=== PATIENT | male | born 1940 | race Caucasian/White ===

== ENCOUNTER 2020-06-29 16:33 | Inpatient (IN) | payer MEDICARE, BC ==
[~2020-06-29] VITALS: Ht 182.9 cm; Wt 127.4 kg
--- NOTE | 2020-06-29 17:05 | EKG ---
[address] [address] Test Date: 2020-06-29 Test Time: 16:54:20 Pat Name: ERICH MANZO Department: Room: Gender: M [employer] Manager: MARGAUX : 1940 Requested By: BLACK VILLARREAL Order Number: [id number] Reading MD: Measurements Intervals [place] Rate: 77 P: 0 MN: 178 QRS: -23 QRSD: 144 T: 118 QT: 412 QTc: 468 Interpretive Statements SINUS RHYTHM LEFTWARD AXIS LOW LIMB LEAD VOLTAGE NON SPECIFIC INTRAVENTRICULAR BLOCK QRS(T) CONTOUR ABNORMALITY CONSISTENT WITH ANTERIOR INFARCT PROBABLY OLD CONSISTENT WITH INFERIOR INFARCT AGE UNDETERMINED ABNORMAL ECG RI6.02 No previous ECG available for comparison
[2020-06-29] MEDS ORDERED: IPRATRPIUM/ALBUTEROL 0.5/2.5MG 3 ML NEBU. NEB ONE (17:15)
--- NOTE | 2020-06-29 17:23 | PHYS DOC ---
General Adult EDM: Chief Complaint: SHORTNESS OF BREATH HPI: HPI: 80-year-old male coming in for shortness of breath. Has had productive cough for the past 3 days. Also has noted wheezing. She does shortness of breath is getting worse. Has a history of asthma and has had inhaler has not helped. History of a prosthetic aortic valve, hypertension, diabetes. No vomiting or diarrhea. Denies any fevers, headaches, body aches (BLACK VILLARREAL MD) Review of Systems: Review of Systems: Constitutional: Denies fever or chills Eyes: Denies change in visual acuity HENT: Denies nasal congestion or sore throat Respiratory: Cough and shortness of breath, wheezing Cardiovascular: Denies chest pain or edema GI: Denies abdominal pain, nausea, vomiting, bloody stools or diarrhea : Denies dysuria Musculoskeletal: Denies back pain or joint pain Integument: Denies rash Neurologic: Denies headache, focal weakness or sensory changes Endocrine: Denies polyuria or polydipsia Lymphatic: Denies swollen glands Psychiatric: Denies depression or anxiety (BLACK VILLARREAL MD) Heart Score: Risk Factors: Risk Factors: DM, Current or recent (<one month) smoker, HTN, HLP, family history of CAD, obesity. Risk Scores: Score 0 - 3: 2.5% MACE over next 6 weeks - Discharge Home Score 4 - 6: 20.3% MACE over next 6 weeks - Admit for Clinical Observation Score 7 - 10: 72.7% MACE over next 6 weeks - Early Invasive Strategies (BLACK VILLARREAL MD) Current Medications: Current Meds: Current Medications Medications (Trade) Dose Ordered Sig/Mela Start Time Stop Time Status Last Admin Dose Admin Albuterol/ Ipratropium (Duoneb) 3 ml 1X ONCE 06/29/20 17:15 06/29/20 17:16 UNV (BLACK VILLARREAL MD) Allergies: Allergies: Allergies Coded Allergies Type Severity Reaction Last Updated Verified amlodipine Allergy Unknown 06/29/20 Yes atorvastatin Allergy Unknown 06/29/20 Yes (BLACK VILLARREAL MD) Physical Exam: PE: Constitutional: Well developed, well nourished, no acute distress, non-toxic appearance. [] HENT: Normocephalic, atraumatic, bilateral external ears normal, oropharynx moist, no oral exudates, nose normal. [] Eyes: PERRLA, EOMI, conjunctiva normal, no discharge. [] Neck: Normal range of motion, no tenderness, supple, no stridor. [] Cardiovascular:Heart rate regular rhythm, no murmur [] Lungs & Thorax: Bilateral breath sounds clear to auscultation [] Abdomen: Bowel sounds normal, soft, no tenderness, no masses, no pulsatile masses. [] Skin: Warm, dry, no erythema, no rash. [] Back: No tenderness, no CVA tenderness. [] Extremities: No tenderness, no cyanosis, no clubbing, ROM intact, no edema. [] Neurologic: Alert and oriented X 3, normal motor function, normal sensory function, no focal deficits noted. [] Psychologic: Affect normal, judgement normal, mood normal. [] (BLACK VILLARREAL MD) EKG: EKG: [] (BLACK VILLARREAL MD) EKG: Sinus rhythm, rate 77, normal axis, no ST elevation or depression, poor R wave progression, nonspecific block (BRETT MARSH DO) Radiology/Procedures: Radiology/Procedures: [] (BLACK VILLARREAL MD) Impressions: CHEST AP ONLY History: Reason: soa / Spl. Instructions: / History: Comparison: September 26, 2015 Findings: Bilateral interstitial thickening. Patchy mid and bibasilar opacities with consolidations in the right lower lung. Small bilateral pleural effusions. Enlarged cardiac size. Prominence of the right hilum, unchanged and likely enlarged pulmonary vasculature. Impression: 1. Interstitial thickening with multifocal opacities most consolidative in the right lower lung, may represent pulmonary edema or pneumonia. Recommend follow-up. 2. Small bilateral pleural effusions. 3. Enlarged cardiac size. Electronically signed by: Herman Van DO (06/29/2020 5:42 PM) [facility] DICTATED AND SIGNED BY: HERMAN VAN DO DATE: 06/29/20 174 CC: BLACK VILLARREAL MD; PCP,NO ~ (BRETT MARSH DO) Course & Med Decision Making: Course & Med Decision Making Pertinent Labs and Imaging studies reviewed. (See chart for details) [] (BLACK VILLARREAL MD) Course & Med Decision Making The patient's labs are significant for an elevated troponin of 0.1. I have no previous for comparison. He is not currently having chest pain. His EKG shows deep R waves in the anterior leads and wide QRS complexes of 144. His chest x-r ay is significant for consolidation in the right lung as well as findings in the left. This could be pulmonary edema, pneumonia, or COVID-19. I am treating with 40 mg of Lasix, a gram of Rocephin, 500 mg of azithromycin IV. Is covered with test is pending. I will admit the patient to the hospital. I spoke with Dr. Green and he has accepted the patient for admission. The patient is requiring 2 L of oxygen to maintain a saturation of 96%. He is comfortable in the room. (BRETT MARSH DO) Dragon Disclaimer: Dragon Disclaimer: This electronic medical record was generated, in whole or in part, using a voice recognition dictation system. (BLACK VILLARREAL MD) Departure Departure: Impression: Primary Impression: Pneumonia Additional Impressions: CHF (congestive heart failure) Suspected COVID-19 virus infection Disposition: ADMITTED INPT THIS HOSP Admitting Physician: Jose Green (BRETT MARSH DO) Condition: STABLE Referrals: PCP,NO (PCP) BLACK VILLARREAL MD Jun 29, 2020 17:22 BRETT MARSH DO Jun 29, 2020 19:38
[2020-06-29 17:33] LABS: CALCIUM 8.7 mg/dL (8.5-10.1); CREATININE 1.3 mg/dL (0.7-1.3); GFR 53.1
--- NOTE | 2020-06-29 17:45 | RAD ---
CHEST AP ONLY History: Reason: soa / Spl. Instructions: / History: Comparison: September 26, 2015 Findings: Bilateral interstitial thickening. Patchy mid and bibasilar opacities with consolidations in the right lower lung. Small bilateral pleural effusions. Enlarged cardiac size. Prominence of the right hilum, unchanged and likely enlarged pulmonary vasculature. Impression: 1. Interstitial thickening with multifocal opacities most consolidative in the right lower lung, may represent pulmonary edema or pneumonia. Recommend follow-up. 2. Small bilateral pleural effusions. 3. Enlarged cardiac size. Electronically signed by: Herman Van DO (06/29/2020 5:42 PM) [facility]
[2020-06-29 17:46] LABS: ALBUMIN 3.5 g/dL (3.4-5.0); ALBUMIN/GLOBULIN RATIO 1.1 (1.0-1.7); TOTAL BILIRUBIN 0.7 mg/dL (0.2-1.0); TOTAL PROTEIN 6.7 g/dL (6.4-8.2)
[2020-06-29] MEDS ORDERED: AZITHROMYCIN 500 MG in IV NORMAL SALINE 250ML 250 ML IV ONE (18:30)
[2020-06-29 18:34] LABS: BASO % 0 % (0-3); EOS # 0.1 x10^3/uL (0.0-0.7); EOS % 0 % (0-3); HEMATOCRIT 37.9 % (39.0-53.0); HEMOGLOBIN 12.2 g/dL (13.0-17.5); LYMPH # 1.4 x10^3/uL (1.0-4.8); LYMPH % 10 % (24-48); MEAN CORPUSCULAR HEMOGLOBIN 27 pg (25-35); MEAN CORPUSCULAR HGB CONC 32 g/dL (31-37); MEAN CORPUSCULAR VOLUME 84 fL (79-100); MONO % 7 % (0-9); NEUT # 11.4 x10^3uL (1.8-7.7); NEUT % 82 % (31-73); RED BLOOD COUNT 4.53 x10^6/uL (4.30-5.70); RED CELL DISTRIBUTION WIDTH 16.1 % (11.5-14.5)
[2020-06-29] MEDS ORDERED: FUROSEMIDE 40 MG/4 ML VIAL IVP ONE (18:45)
[2020-06-29 19:09] LABS: PLATELET COUNT 148 x10^3/uL (140-400)
[2020-06-29] MEDS ORDERED: AZITHROMYCIN 500 MG VIAL. IV ONE (19:18)
[2020-06-29] MEDS ORDERED: IV NORMAL SALINE 50ML 50 ML ONE (19:18)
[2020-06-29] MEDS ORDERED: IV NORMAL SALINE 250ML 250 ML ONE (19:18)
[2020-06-29] MEDS ORDERED: cefTRIAXone SODIUM 1 GM VIAL ONE (19:19)
[2020-06-29 19:31] LABS: % BANDS 1 % (0-9); % BASOS 2 % (0-3); % LYMPHS 15 % (24-48); % MONOS 12 % (0-10); % SEGS 70 % (35-66)
[2020-06-29 19:32] LABS: PLATELET CLUMP PRESENT; PLT ESTIMATE ADEQUATE (ADEQUATE)
--- NOTE | 2020-06-29 20:30 | NUR ---
The patient, ERICH MANZO, 80 y/o, M admitted by KULWINDER GREEN MD, to room 123, was given written information regarding hospital policies, unit procedures and contact persons. Valuables were checked and left with the patient. Pt medications reviewed, medical history and family history discussed and needs assessed. Pt medications reviewed with Dr. Green and orders received and implemented. Will continue to monitor.
[2020-06-29 20:36] VITALS: BP 175/67
[2020-06-29] MEDS ORDERED: PRAV20TA PO (21:19)
[2020-06-29] MEDS ORDERED: FLUT1DIS5 IH (21:19)
[2020-06-29] MEDS ORDERED: CHLO25TA9 PO (21:19)
[2020-06-29] MEDS ORDERED: CARV20CP PO (21:19)
[2020-06-29] MEDS ORDERED: CARV25TA PO (21:19)
[2020-06-29] MEDS ORDERED: GLIM4TAB PO (21:19)
[2020-06-29] MEDS ORDERED: OLME40TA12 PO (21:19)
[2020-06-29] MEDS ORDERED: ASPI-630 PO (21:20)
[2020-06-29] MEDS ORDERED: ASCO500C9 PO (21:27)
[2020-06-29] MEDS ORDERED: potassium PO (21:27)
[2020-06-29] MEDS ORDERED: vitamin d PO (21:47)
[2020-06-29] MEDS ORDERED: CARVEDILOL 6.25 MG TABLET PO SCH (22:00)
[2020-06-29 23:23] VITALS: BP 192/67
[2020-06-29] MEDS: CARVEDILOL 12.5 MG TABLET PO SCH (23:45)
[2020-06-30 06:11] VITALS: BP 184/72
[2020-06-30] MEDS ORDERED: POTASSIUM CHLORIDE 10 MEQ TABLET.ER. PO SCH (08:00)
[2020-06-30] MEDS: PRAVASTATIN SODIUM 10 MG PO SCH (09:00)
[2020-06-30] MEDS: ASCORBIC ACID 500 MG TABLET PO SCH (09:25)
[2020-06-30] MEDS: ASPIRIN CHEWABLE 81 MG TABLET. PO SCH (09:25)
[2020-06-30] MEDS: GLIMEPIRIDE 2 MG TABLET PO SCH (09:25)
[2020-06-30] MEDS: LOSARTAN 50 MG TABLET. PO SCH (09:25)
[2020-06-30] MEDS: FUROSEMIDE 100 MG/10 ML VIAL IVP SCH ×2 (09:26→14:57)
[2020-06-30] MEDS: CARVEDILOL 12.5 MG TABLET PO SCH ×2 (09:26→16:45)
[2020-06-30 10:26] VITALS: BP 178/61
--- NOTE | 2020-06-30 10:58 | HP ---
ADMIT DATE: 06/29/2020 ATTENDING PHYSICIAN: Dr. Wright CHIEF COMPLAINT: Shortness of breath. HISTORY OF PRESENT ILLNESS: The patient is an 80-year-old gentleman who has been short of breath for the last 3 days. He has had noticeable wheezing, orthopnea, dyspnea with exertion. He drinks a lot of water. He has dry mouth. His cardiac history shows that he has a bovine aortic valve replaced through a TAVR procedure in 04/2019, supposedly it was for aortic stenosis. He also is hypertensive, diabetic and he has morbid obesity. He drinks a lot of water. Chest x-ray demonstrated cardiomegaly and bilateral effusions. He was given Lasix with some improvement. He was also admitted for serial cardiac enzymes. Three sets of enzymes were slightly elevated, whether this is a demand ischemia or whether he has a blockage remains to be seen. He did tell me that in 2018 prior to his TAVR procedure, he had a coronary angiogram which showed clean and patent coronary arteries with a maximal obstruction estimated only 20%. He is therefore admitted for further treatment and evaluation. His other past medical history is also significant for obstructive sleep apnea in addition to his aortic stenosis. He has labile essential hypertension. ALLERGIES: He has allergies to AMLODIPINE and LIPITOR, exact reaction is unclear. CURRENT MEDICINES: At home include ascorbic acid, aspirin, Coreg 25 mg b.i.d., chlorthalidone 25 mg daily, fluticasone, glimepiride, olmesartan, pravastatin, potassium and vitamin D. SOCIAL HISTORY: He is a nonsmoker, nondrinker. FAMILY HISTORY: Mom at age 66 of colon cancer. Father of congestive heart failure at age 73. He is retired. He worked for the government. He is and lives with his . SOCIAL HISTORY: Nonsmoker and nondrinker. REVIEW OF SYSTEMS: Significant for dry mouth from his medication. He is diabetic. He has obstructive sleep apnea. He has had dyspnea with exertion. He is overweight with a BMI of 40. No nausea or vomiting. No recent COVID exposure. His COVID swab is pending. All other systems reviewed and determined to be negative. PHYSICAL EXAMINATION: GENERAL: When I saw him, this is a pleasant elderly gentleman. INITIAL VITAL SIGNS: Showed a blood pressure of 175/67, pulse is 81 and regular, temperature 98.2 degrees Fahrenheit, oxygen saturation 96% on 2 liters nasal cannula. HEENT: Head is without trauma. Pupils are reactive. Sclerae nonicteric. Oropharynx is clear. NECK: Supple, no bruits. LUNGS: Fairly good breath sounds with minimal crackles at the bases. CARDIOVASCULAR: Showed distant heart tones due to his girth. Normal S1. Soft grade 2/6 systolic ejection murmur at the left sternal border. The murmur does not radiate. Peripheral pulses are palpable and full. ABDOMEN: Obese, protuberant. No organomegaly. Bowel sounds were hypoactive. EXTREMITIES: Showed 2+ edema of the lower extremities. NEUROLOGIC FINDINGS: Focally intact. Speech is fluent. He had no focal deficits. [place] were symmetrical. SKIN: Warm and dry. LABORATORY STUDIES: Chest x-ray on admission showed interstitial thickening, multifocal opacities, consolidate on the right lower lung which may represent pulmonary edema, pneumonia cannot be ruled out. He also had cardiac enlargement and bilateral pleural effusions that are small in nature. Hemoglobin is 12.2 g/dL with a white count of 10,000. Cardiac enzymes were slightly elevated at 0.104, 0.103 and 0.186. Chemistry showed a sodium of 141, potassium 4.0 mEq, nonfasting blood sugar 132, creatinine 1.3 mg/dL. BNP is 10,600. ASSESSMENT: 1. An 80-year-old gentleman with acute on chronic congestive heart failure, probably systolic in nature. The patient states he had an outpatient echocardiogram through the [facility]. I will try to track this down rather than repeating it. This was just done 3 weeks ago. 2. Elevation of troponins, whether this is a [id number] myocardial infarction versus stress demand ischemia remains to be seen. 3. Hypertension with hypertensive heart disease. 4. Type 2 diabetes. 5. Obstructive sleep apnea. 6. History of aortic stenosis, status post transcatheter aortic valve replacement procedure with bovine bioprosthetic valve. 7. Morbid obesity. PLAN: 1. Admit to the inpatient unit. 2. Serial enzymes have been drawn. 3. Formal Cardiology consultation. 4. Diuresis with Lasix twice a day. 5. Daily weights. 6. Fluid restriction. 7. Serial chemistries. KULWINDER WRIGHT MD DR: TANI/carl JOB#: [id number] / [id number] [address]rey [address] Dr[address]
--- NOTE | 2020-06-30 13:09 | PDOC2 ---
CONSULT DOS: DATE: 06/30/20 TIME: 13:09 Reason for Consult: Elevated troponin level Referring Physician: Dr. Green Chief Complaint Shortness of breath Source: Chart review, Patient Problem List Problems Medical Problems: (1) CHF (congestive heart failure) Status: Acute (2) Pneumonia Status: Acute (3) Suspected COVID-19 virus infection Status: Acute History of Present Illness 80-year-old male with history of aortic stenosis s/p TAVR, usually followed by [facility] cardiology presented complaining of progressive shortness of breath and cough. He is currently being ruled out for COVID. He denied any chest pain, orthopnea/PND, palpitations or syncope. His troponin level was slightly elevated prompting cardiology consultation. Past Medical History Hypertension Diabetes mellitus type 2 Aortic stenosis s/p TAVR Hyperlipidemia Family History Hypertension, colon cancer Social History Patient is a non-smoker and a nondrinker Current Medications Current Medications Albuterol/ Ipratropium (Duoneb) 3 ml 1X ONCE NEB Last administered on 06/29/20at 17:15; Start 06/29/20 at 17:15; Stop 06/29/20 at 17:16; Status DC Ceftriaxone Sodium 1 gm/ Sodium Chloride 50 ml @ 100 mls/hr 1X ONCE IV Last administered on 06/29/20at 18:30; Start 06/29/20 at 18:30; Stop 06/29/20 at 18:59; Status DC Azithromycin 500 mg/Sodium Chloride 250 ml @ 250 mls/hr 1X ONCE IV Last administered on 06/29/20at 19:24; Start 06/29/20 at 18:30; Stop 06/29/20 at 19:29; Status DC Furosemide (Lasix) 40 mg 1X ONCE IVP Last administered on 06/29/20at 19:24; Start 06/29/20 at 18:45; Stop 06/29/20 at 18:51; Status DC Sodium Chloride 250 ml @ As Directed STK-MED ONCE .ROUTE ; Start 06/29/20 at 19:18; Stop 06/29/20 at 19:18; Status DC Sodium Chloride 50 ml @ As Directed STK-MED ONCE .ROUTE ; Start 06/29/20 at 19:18; Stop 06/29/20 at 19:18; Status DC Azithromycin (Zithromax) 500 mg STK-MED ONCE IV ; Start 06/29/20 at 19:18; Stop 06/29/20 at 19:18; Status DC Ceftriaxone Sodium (Rocephin) 1 gm STK-MED ONCE .ROUTE ; Start 06/29/20 at 19:19; Stop 06/29/20 at 19:19; Status DC Aspirin (Aspirin Chewable) 81 mg DAILY PO Last administered on 06/30/20at 09:25; Start 06/30/20 at 09:00 Ascorbic Acid (Vitamin C) 1,000 mg DAILY PO Last administered on 06/30/20at 09:25; Start 06/30/20 at 09:00 Carvedilol (Coreg) 6.25 mg BIDWMEALS PO ; Start 06/29/20 at 22:00; Stop 06/29/20 at 23:15; Status DC Glimepiride (Amaryl) 4 mg DAILY PO Last administered on 06/30/20at 09:25; Start 06/30/20 at 09:00 Losartan Potassium (Cozaar) 100 mg DAILY PO Last administered on 06/30/20at 09:25; Start 06/30/20 at 09:00 Non-Formulary Medication (Pravastatin Sodium (Pravachol)) 10 mg DAILY PO ; Start 06/30/20 at 09:00; Status UNV Potassium Chloride (Klor-Con) 10 meq DAILYWBKFT PO Last administered on 06/30/20at 09:25; Start 06/30/20 at 08:00 Carvedilol (Coreg) 37.5 mg BIDWMEALS PO Last administered on 06/30/20at 09:26; Start 06/29/20 at 23:45 Furosemide (Lasix) 80 mg BID92 IVP Last administered on 06/30/20at 09:26; Start 06/30/20 at 09:00 Ceftriaxone Sodium 1 gm/ Sodium Chloride 50 ml @ 100 mls/hr Q24H IV ; Start 06/30/20 at 19:00 Lactobacillus Rhamnosus (Culturelle) 1 cap BID PO ; Start 06/30/20 at 21:00 Active Scripts Active Reported [vitamin d] 1,000 Intlu PO DAILY Vitamin C (Ascorbic Acid) 500 Mg Capsule 1,000 Mg PO DAILY [potassium] 550 Mg PO DAILY Aspirin 81 Mg Tab.chew 81 Mg PO DAILY Advair 500-50 Diskus (Fluticasone/Salmeterol) 1 Each Disk.w.dev 1 Puff IH BID PRN Amaryl (Glimepiride) 4 Mg Tablet 1 Tab PO DAILY Pravachol (Pravastatin Sodium) 20 Mg Tablet 10 Mg PO DAILY Chlorthalidone (Chlorthalidone) 25 Mg Tablet 25 Mg PO DAILY Coreg (Carvedilol) 25 Mg Tablet 25 Mg PO BIDWMEALS Coreg Cr (Carvedilol Phosphate) 20 Mg Cpmp.24hr 20 Mg PO DAILY Benicar (Olmesartan Medoxomil) 40 Mg Tablet 40 Mg PO DAILY Allergies: Coded Allergies: amlodipine (Verified Allergy, Intermediate, leg cramps, light headed, diarrhea, hypotension, 06/29/20) atorvastatin (Verified Allergy, Unknown, 06/29/20) PSYCHOLOGICAL ROS: No: Hallucinations Eyes: No: Loss of vision HEENT: No: Epistaxis Respiratory: YES: Cough, Shortness of breath; No: Hemoptysis Cardiovascular: No: Chest Pain Gastrointestinal: No: Vomiting Neurological: No: Seizures Skin: No: Rash General: Alert, Oriented X3 HEENT: Atraumatic Lungs: Other (Decreased air entry bases) Heart: Regular rate Abdomen: Soft Extremities: Other (Trace) Neuro: Normal speech VITALS Vital Signs Date Time Temp Pulse Resp B/P (MAP) Pulse Ox O2 Delivery O2 Flow Rate FiO2 06/30/20 10:26 97.6 61 20 178/61 (100) 95 Nasal Cannula 1.0 Labs Laboratory Tests Test 06/29/20 17:02 06/29/20 18:06 06/29/20 23:55 06/30/20 02:20 Sodium Level 141 mmol/L (136-145) Potassium Level 4.0 mmol/L (3.5-5.1) Chloride Level 104 mmol/L (98-107) Carbon Dioxide Level 29 mmol/L (21-32) Anion Gap 8 (6-14) Blood Urea Nitrogen 26 mg/dL (8-26) Creatinine 1.3 mg/dL (0.7-1.3) Estimated GFR (Cockcroft-Gault) 53.1 BUN/Creatinine Ratio 20 (6-20) Glucose Level 132 mg/dL (70-99) Lactic Acid Level 1.0 mmol/L (0.4-2.0) Calcium Level 8.7 mg/dL (8.5-10.1) Total Bilirubin 0.7 mg/dL (0.2-1.0) Aspartate Amino Transf (AST/SGOT) 15 U/L (15-37) Alanine Aminotransferase (ALT/SGPT) 23 U/L (16-63) Alkaline Phosphatase 84 U/L (46-116) Troponin I Quantitative 0.104 ng/mL (0-0.055) 0.103 ng/mL (0-0.055) 0.186 ng/mL (0-0.055) FM-Pyh-U-Type Natriuretic Peptide 19036 pg/mL (0-449) Total Protein 6.7 g/dL (6.4-8.2) Albumin 3.5 g/dL (3.4-5.0) Albumin/Globulin Ratio 1.1 (1.0-1.7) White Blood Count 10.0 x10^3/uL (4.0-11.0) Red Blood Count 4.53 x10^6/uL (4.30-5.70) Hemoglobin 12.2 g/dL (13.0-17.5) Hematocrit 37.9 % (39.0-53.0) Mean Corpuscular Volume 84 fL (79-100) Mean Corpuscular Hemoglobin 27 pg (25-35) Mean Corpuscular Hemoglobin Concent 32 g/dL (31-37) Red Cell Distribution Width 16.1 % (11.5-14.5) Platelet Count 148 x10^3/uL (140-400) Neutrophils (%) (Auto) 82 % (31-73) Lymphocytes (%) (Auto) 10 % (24-48) Monocytes (%) (Auto) 7 % (0-9) Eosinophils (%) (Auto) 0 % (0-3) Basophils (%) (Auto) 0 % (0-3) Neutrophils # (Auto) 11.4 x10^3uL (1.8-7.7) Lymphocytes # (Auto) 1.4 x10^3/uL (1.0-4.8) Monocytes # (Auto) 1.0 x10^3/uL (0.0-1.1) Eosinophils # (Auto) 0.1 x10^3/uL (0.0-0.7) Basophils # (Auto) 0.0 x10^3/uL (0.0-0.2) Segmented Neutrophils % 70 % (35-66) Band Neutrophils % 1 % (0-9) Lymphocytes % 15 % (24-48) Monocytes % 12 % (0-10) Basophils % 2 % (0-3) Platelet Estimate Adequate (ADEQUATE) Platelet Clumps, EDTA Present Test 06/30/20 07:51 Glucose (Fingerstick) 117 mg/dL (70-99) Assessment/Plan 1. Congestive heart failure, most probably acute on chronic diastolic. Continue diuresis with Lasix. COVID test pending. We will obtain records of recent 2D echo etc from [facility] cardiology. 2. Slightly elevated troponin level, most probably demand ischemia. Telemetry did not show any significant arrhythmias and patient denied any chest pain. Cardiac catheterization prior to TAVR procedure apparently showed only 20% stenosis per patient. 3. Hypertension: Continue current medical regimen. 4. Aortic stenosis s/p TAVR, clinically stable. 5. Hyperlipidemia: Continue statin therapy. 6. Diabetes mellitus type 2: Treat per IM Thank you for your consultation JORDANA MUNROE MD Jun 30, 2020 13:09
[2020-06-30 14:19] VITALS: BP 166/56
[2020-06-30 20:55] VITALS: BP 154/75
[2020-06-30] MEDS: LACTOBACILLUS RHAMNOSUS GG 1 CAPSULE. PO SCH (21:00)
[2020-06-30 23:14] VITALS: BP 135/75
[2020-07-01 06:30] VITALS: BP 175/78
[2020-07-01 07:58] LABS: CALCIUM 8.8 mg/dL (8.5-10.1); CREATININE 1.5 mg/dL (0.7-1.3)
[2020-07-01] MEDS ORDERED: MAGNESIUM SULFATE 1GM 100 ML IV ONE (08:45)
[2020-07-01] MEDS: PRAVASTATIN SODIUM 10 MG PO SCH (09:00)
--- NOTE | 2020-07-01 09:22 | PN ---
DATE: 07/01/2020 ATTENDING PHYSICIAN: Dr. Wright. SUBJECTIVE: Feeling better, breathing well, diuresing well. No new complaints. He slept better. OBJECTIVE FINDINGS: VITAL SIGNS: Weight is pending today. Blood pressure is still labile between 135 and 175 mmHg systolic. Oxygen saturations adequate on room air, temperature is 97.7 degrees Fahrenheit, pulse is 74 and regular. HEENT: Head is without trauma. Pupils are reactive. Sclerae nonicteric. Oropharynx is clear. NECK: Supple. LUNGS: Good breath sounds. CARDIOVASCULAR: Showed regular heart tones. No gallops. Soft grade 2/6 systolic ejection murmur at the left sternal border. Peripheral pulses are palpable and full. ABDOMEN: Obese, protuberant. No organomegaly, normal bowel sounds. EXTREMITIES: Show decreased and pitting edema. NEUROLOGIC: Focally intact. Speech is fluent. SKIN: Otherwise, warm and dry. LABORATORY DATA: The potassium is now 3.0 mEq per liter. He is asymptomatic. Creatinine remains at 1.5 mg/dL, nonfasting blood sugar 118 mg/dL. ASSESSMENT: 1. An 80-year-old gentleman with acute on chronic congestive heart failure. 2. Elevation of troponin due to stress demand. 3. Essential hypertension. 4. Morbid obesity. 5. Type 2 diabetes. 6. History of transcatheter aortic valve replacement for aortic valve repair due to aortic stenosis. 7. Obstructive sleep apnea. PLAN: 1. Continue diuresis. 2. Increase potassium supplementation. 3. Magnesium supplementation. 4. Continue daily weights and fluid restriction. 5. I recommended a cardiology evaluation. Hopefully, this can be worked up as an outpatient. He can go home tomorrow. 6. Serial chemistries following potassium and magnesium replacement. KULWINDER WRIGHT MD DR: TANI/carl JOB#: [id number] / [id number]
[2020-07-01] MEDS: GLIMEPIRIDE 2 MG TABLET PO SCH (10:01)
[2020-07-01] MEDS: POTASSIUM CHLORIDE 10 MEQ TABLET.ER. PO SCH ×2 (10:01→22:10)
[2020-07-01] MEDS: CARVEDILOL 12.5 MG TABLET PO SCH ×2 (10:03→17:12)
[2020-07-01] MEDS: FUROSEMIDE 100 MG/10 ML VIAL IVP SCH ×2 (10:04→14:53)
[2020-07-01] MEDS: ASPIRIN CHEWABLE 81 MG TABLET. PO SCH (10:04)
[2020-07-01] MEDS: LOSARTAN 50 MG TABLET. PO SCH (10:04)
[2020-07-01] MEDS: ASCORBIC ACID 500 MG TABLET PO SCH (10:04)
[2020-07-01] MEDS: LACTOBACILLUS RHAMNOSUS GG 1 CAPSULE. PO SCH ×2 (10:16→22:10)
[2020-07-01 11:07] VITALS: BP 137/62
[2020-07-01 14:51] VITALS: BP 174/75
[2020-07-01 19:54] VITALS: BP 163/71
[2020-07-01 19:55] LABS: ALBUMIN 3.2 g/dL (3.4-5.0); ALBUMIN/GLOBULIN RATIO 0.8 (1.0-1.7); CALCIUM 8.7 mg/dL (8.5-10.1); CREATININE 1.8 mg/dL (0.7-1.3); GFR 36.5; TOTAL BILIRUBIN 0.4 mg/dL (0.2-1.0); TOTAL PROTEIN 7.2 g/dL (6.4-8.2)
[2020-07-01 22:42] VITALS: BP 119/68
[2020-07-02 05:58] VITALS: BP 134/74
[2020-07-02 07:09] LABS: CALCIUM 8.7 mg/dL (8.5-10.1); CREATININE 1.5 mg/dL (0.7-1.3); POTASSIUM 3.3 mmol/L (3.5-5.1)
[2020-07-02] MEDS: ASCORBIC ACID 500 MG TABLET PO SCH (08:29)
[2020-07-02] MEDS: GLIMEPIRIDE 2 MG TABLET PO SCH (08:30)
[2020-07-02] MEDS: LACTOBACILLUS RHAMNOSUS GG 1 CAPSULE. PO SCH (08:30)
[2020-07-02] MEDS: POTASSIUM CHLORIDE 10 MEQ TABLET.ER. PO SCH (08:30)
[2020-07-02] MEDS: ASPIRIN CHEWABLE 81 MG TABLET. PO SCH (08:30)
[2020-07-02] MEDS: CARVEDILOL 12.5 MG TABLET PO SCH (08:30)
--- NOTE | 2020-07-02 08:30 | PDOC ---
CARDIO Progress Notes Date & Time Date of Service DATE: 07/02/20 TIME: 08:07 Time of Evaluation 08:07 Subjective Notes SOA resolved. No chest pain, palpitations. Vitals Vitals Vital Signs Date Time Temp Pulse Resp B/P (MAP) Pulse Ox O2 Delivery O2 Flow Rate FiO2 07/02/20 05:58 97.8 71 20 134/74 (94) 96 Nasal Cannula 2.0 Weight Weight [ ] Input and Output I.O. Intake and Output 07/02/20 07:00 Intake Total 780 ml Balance 780 ml Intake Oral 630 ml IV Total 150 ml # Voids 7 Laboratory Labs Laboratory Tests Test 07/01/20 05:40 07/01/20 07:40 07/01/20 08:14 07/01/20 19:20 Glucose (Fingerstick) 108 mg/dL (70-99) 118 mg/dL (70-99) Sodium Level 141 mmol/L (136-145) 141 mmol/L (136-145) Potassium Level 3.0 mmol/L (3.5-5.1) 3.0 mmol/L (3.5-5.1) Chloride Level 101 mmol/L (98-107) 101 mmol/L (98-107) Carbon Dioxide Level 30 mmol/L (21-32) 30 mmol/L (21-32) Anion Gap 10 (6-14) 10 (6-14) Blood Urea Nitrogen 35 mg/dL (8-26) 44 mg/dL (8-26) Creatinine 1.5 mg/dL (0.7-1.3) 1.8 mg/dL (0.7-1.3) Estimated GFR (Cockcroft-Gault) 45.0 36.5 Glucose Level 114 mg/dL (70-99) 198 mg/dL (70-99) Calcium Level 8.8 mg/dL (8.5-10.1) 8.7 mg/dL (8.5-10.1) BUN/Creatinine Ratio 24 (6-20) Total Bilirubin 0.4 mg/dL (0.2-1.0) Aspartate Amino Transf (AST/SGOT) 16 U/L (15-37) Alanine Aminotransferase (ALT/SGPT) 21 U/L (16-63) Alkaline Phosphatase 78 U/L (46-116) Total Protein 7.2 g/dL (6.4-8.2) Albumin 3.2 g/dL (3.4-5.0) Albumin/Globulin Ratio 0.8 (1.0-1.7) Test 07/02/20 06:30 Sodium Level 143 mmol/L (136-145) Potassium Level 3.3 mmol/L (3.5-5.1) Chloride Level 104 mmol/L (98-107) Carbon Dioxide Level 32 mmol/L (21-32) Anion Gap 7 (6-14) Blood Urea Nitrogen 43 mg/dL (8-26) Creatinine 1.5 mg/dL (0.7-1.3) Estimated GFR (Cockcroft-Gault) 45.0 Glucose Level 125 mg/dL (70-99) Calcium Level 8.7 mg/dL (8.5-10.1) Physical Exams HEENT: Neck Supple W Full Motion Chest: Symmetric Lungs: Clear to Auscultation Heart: RRR Abdomen: Soft N/T Extremities: No Edema Neurology: alert, oriented, follow commands Assessment Assessment 1. Congestive heart failure, most probably acute on chronic diastolic. COVID negative. Improved with IV diuresis. had echo 3 weeks ago at [facility]; did not received these records. 2. Slightly elevated troponin; highest 0.186. Most probably demand ischemia. CP free. Cardiac catheterization prior to TAVR procedure 04/2019 apparently showed only 20% stenosis per patient. 3. Accelerated hypertension: now controlled 4. Aortic stenosis s/p TAVR, clinically stable. 5. Hyperlipidemia: statin therapy. 6. Diabetes, II 7. MIRIAM on CKD 8. Hypokalemia; replaced Recommendations Convert Lasix to oral Recheck BMP next week with PCP discussed 2000cc FR, 2 Gm Na diet Follow up with primary cardiology team, Mary Metz APRN and Dr. Valle upon discharge Okay to discharge from CV standpoint CHIKIS BURCH APRN Jul 02, 2020 08:30
[2020-07-02 08:31] VITALS: BP 134/74
[2020-07-02] MEDS: LOSARTAN 50 MG TABLET. PO SCH (08:31)
[2020-07-02] MEDS: FUROSEMIDE 100 MG/10 ML VIAL IVP SCH (08:35)
--- NOTE | 2020-07-02 10:59 | DS ---
DATE OF DISCHARGE: 07/02/2020 ATTENDING PHYSICIAN: Dr. Wright. FINAL DISCHARGE DIAGNOSES: 1. Acute on chronic congestive heart failure, probably systolic in nature. 2. Elevation of troponins due to stress ischemia. 3. Hypertension. 4. Type 2 diabetes. 5. Obstructive sleep apnea. 6. History of aortic stenosis, status post TAVR procedure. 7. Morbid obesity. HISTORY AND PHYSICAL: The patient is a pleasant 80-year-old gentleman admitted with shortness of breath. He had vague symptoms. He had a chest x-ray, which showed bilateral pleural effusions along with some infiltrate in the bases. It was unclear whether this is infectious or heart failure. He did respond to diuretic. He does drink a lot of water. He had cardiomegaly. His cardiac history indicates that he had a cardiac catheterization in 04/2019 resulting in a TAVR procedure at [facility]. In addition, his most recent echocardiogram just 3 weeks prior, had been done as an outpatient. At the time of the catheterization in 2018, he had minimal obstructive coronary artery disease at 20%. PHYSICAL EXAMINATION: Please see the dictated note. PERTINENT LABORATORY AND X-RAY STUDIES: His admission hemoglobin was 12.2 g/dL, white count 10,000. Electrolytes: Sodium was replaced from 3.0 to 3.3 mEq. This will be followed as an outpatient. Sodium 143. Creatinine improved from 1.8 down to 1.5 mg/dL, BUN 43. Cardiac enzymes were recorded, it peaked at 0.186, which is slightly above the normal limits. Chest x-ray demonstrated cardiomegaly and bilateral pleural effusions. EKG was nondiagnostic. COURSE IN THE HOSPITAL: The patient was admitted. He was started on a diuretic with Lasix twice a day along with daily weights and fluid restriction. Serial chemistries were obtained. Potassium and magnesium were replaced. He did well clinically. Lungs were clear. He is breathing better. Swelling in the ankles went down and he felt better. Because of the slight elevation of the troponins, we asked Cardiology service to see him. They reviewed the history and given his clinical improvement, they felt that it was safe for him to go home to followup by his regular store operations manager, Dr. Valle at [facility]. Given the fact he had a catheterization a year ago and a recent echocardiogram, we did not repeat it. He did well with diuresis. I did instruct him on daily weights and to try to keep the weight within a narrow range. I also substituted oral Lasix in place of his hydrochlorothiazide. Therefore on the fourth hospital day, his vital signs are quite stable. His blood pressure was 134/74, pulse is 71 and regular. He is afebrile and oxygen saturation 96% on room air. He is discharged home with Lasix 80 mg p.o. daily, K-Dur 20 mEq daily, vitamin C, aspirin daily, Coreg 25 mg b.i.d., Advair spray, Amaryl 4 mg daily, Benicar, pravastatin and vitamin D. For now, I stopped his chlorthalidone and potassium home dosages and replaced it with Lasix and K-Dur. I have asked him to see Dr. Bowman for followup visit in 2 weeks. He is instructed to monitor his daily weights and recorded his weights accordingly. He was discharged then from our hospital in stable condition with explicit instructions and followup care. KULWINDER WRIGHT MD DR: TANI/carl JOB#: [id number] / [id number] KULWINDER [place]
== END 2020-07-02 10:53 | disposition home or self-care (01) | DRG 291 ==
LOC: ER 16:33 → 1 SOUTH 18:50
PROVIDERS: ADMIT Hospitalist; ATTEND Hospitalist
DX: I13.0 Hypertensive heart and chronic kidney disease with heart failure and stage 1 through stage 4 chronic kidney disease, or unspecified chronic kidney disease (principal); I50.33 Acute on chronic diastolic (congestive) heart failure; N17.9 Acute kidney failure, unspecified; I24.8 Other forms of acute ischemic heart disease; E11.22 Type 2 diabetes mellitus with diabetic chronic kidney disease; E66.01 Morbid (severe) obesity due to excess calories; E78.5 Hyperlipidemia, unspecified; E87.6 Hypokalemia; G47.33 Obstructive sleep apnea (adult) (pediatric); I35.0 Nonrheumatic aortic (valve) stenosis; J45.909 Unspecified asthma, uncomplicated; N18.9 Chronic kidney disease, unspecified; Z20.828 Contact with and (suspected) exposure to other viral communicable diseases; Z79.82 Long term (current) use of aspirin; Z79.84 Long term (current) use of oral hypoglycemic drugs; Z80.0 Family history of malignant neoplasm of digestive organs; Z82.49 Family history of ischemic heart disease and other diseases of the circulatory system; Z95.3 Presence of xenogenic heart valve; Z88.8 Allergy status to other drugs, medicaments and biological substances; Z68.38 Body mass index [BMI] 38.0-38.9, adult
CPT/HCPCS: 36415; 71045; 80048; 80053; 80061; 82947; 83605; 83735; 83880; 84484; 85007; 85025; 93005; 94640; 96365; 96368; 96375; J0456; J0696; J1940; J3475; J7050; U0003; 99285-25

== ENCOUNTER 2021-01-24 21:47 | Inpatient (IN) | payer MEDICARE, BC ==
[~2021-01-24] VITALS: Ht 180.3 cm; Wt 124.0 kg
[~2021-01-24 21:47] MED LIST: ASCO500C9 PO; ASPI-630 PO; CARV20CP PO; CARV25TA PO; CHLO25TA9 PO; FLUT1DIS5 IH; GLIM4TAB PO; OLME40TA12 PO; PRAV20TA PO; potassium PO; vitamin d PO
--- NOTE | 2021-01-24 22:07 | PHYS DOC ---
Past History Past Medical History: A-Fib, CHF, Diabetes, Hypertension Past Surgical History: Other Additional Past Surgical Histo: aortic valve replacement, Alcohol Use: None Adult General Chief Complaint Chief Complaint: SHORTNESS OF BREATH HPI HPI Patient is a 80-year-old male presenting for short of breath via POV. Reports onset was earlier this morning without any known inciting event, ingestion or trauma. Reports it has been getting worse throughout the day. Nothing known makes better or worse. Patient denies any pain just admits increased ability to catch his breath. Timing of symptoms been constant and worsening since onset. Patient reports having history of this, has had prior exacerbations of congestive heart failure. Does admit he had a pacemaker placed proximately 2 weeks ago at local [facility] for atrial fibrillation history and has been on Eliquis ever since, reports feeling has been fine with normal postoperative checkups. States he has been checking his weight daily with no significant fluctuations. He has been compliant with all home medications, fluid restriction and diet restrictions etc. No fever, dizziness, falls or trauma, chest pain, ripping or tearing abdominal or abdomen pain, no dysuria, no changes in motor or sensory function, no neurologic deficits reported Review of Systems Review of Systems Fourteen body systems of review of systems have been reviewed. See HPI for pertinent positives and negative responses, other gr all other systems are negative, non-pertinent or non-contributory Allergies Allergies Allergies Coded Allergies Type Severity Reaction Last Updated Verified amlodipine Allergy Intermediate leg cramps, light headed, diarrhea, hypotension 06/29/20 Yes atorvastatin Allergy Unknown 06/29/20 Yes Physical Exam Physical Exam Constitutional: Well developed, well nourished, presents in acute respiratory distress speaking in few word sentences only HENT: Normocephalic, atraumatic, bilateral external ears normal, oropharynx dry, no oral exudates, nose normal. Eyes: PERRLA, EOMI, conjunctiva normal, no discharge. Neck: Normal range of motion, no tenderness, supple, no stridor. Cardiovascular: Heart rate regular, sinus rhythm, left upper extremity pacemaker defibrillator present with well-healed surgical incisions which patient states was placed 2 weeks prior Lungs & Thorax: In acute respiratory distress with increased work of breathing, accessory muscle use of abdomen noted, diminished lung sounds bilaterally with rales present in bilateral bases on auscultation Abdomen: Bowel sounds normal, soft, no tenderness, no masses, no pulsatile masses. Nonsurgical abdomen, no peritoneal signs Skin: Warm, dry, no erythema, no rash. Back: No tenderness, no CVA tenderness. Extremities: No tenderness, no cyanosis, no clubbing, ROM intact, trace edema to bilateral lower extremities Neurologic: Alert and oriented X 3, grossly normal motor & sensory function, no focal deficits noted. Psychologic: Anxious affect and mood Current Patient Data Vital Signs Vital Signs Date Time Temp Pulse Resp B/P (MAP) Pulse Ox O2 Delivery O2 Flow Rate FiO2 01/24/21 21:51 82 40 148/66 (93) 95 Nasal Cannula 6.0 EKG EKG EKG ordered and interpreted by myself at 2204 hrs. as sinus rhythm at 81 bpm, prolonged CO 206, prolonged QRS 164, prolonged QRS at 496 otherwise unremarkable intervals, no axis deviation, left bundle branch block present, negative Sgarbossa's criteria, no STEMI Radiology/Procedures Radiology/Procedures XR CHEST 1V INDICATION: Reason: SHORTNESS OF BREATH / Spl. Instructions: / History: . COMPARISON STUDY: 06/29/2020. FINDINGS: Life Support Devices: Left pectoral pacemaker with leads overlying the right atrium and right ventricle. Lungs: Low lung volume. Bilateral perihilar and basilar opacities. Indistinct pulmonary vasculature Pleura: Moderate right and small left pleural effusion. Heart and Mediastinum: Cardiomegaly. Tortuosity of the thoracic aorta. IMPRESSION: 1. Bilateral perihilar and basilar opacities, likely pulmonary edema or multifocal infection. 2. Moderate right and small left pleural effusion. Electronically signed by: Mello Diaz MD (01/24/2021 10:49 PM) [facility] Heart Score C/O Chest Pain: No HEART Score for Chest Pain: HEART Score for Chest Pain Response (Comments) Value History Moderately Suspicious 1 ECG Nonspecific Repolarizatio 1 Age > 65 2 Risk Factors >3 Risk Factors or Hx CAD 2 Total 6 Risk Factors: Risk Factors: DM, Current or recent (<one month) smoker, HTN, HLP, family history of CAD, obesity. Risk Scores: Risk Factors: DM, Current or recent (<one month) smoker, HTN, HLP, family history of CAD, obesity. Course & Med Decision Making Course & Med Decision Making Patient hypoxic on room air and in obvious respiratory distress with normal vitals otherwise. HPI somewhat limited due to acute respiratory distress, physical exam concerning for hypervolemic state with bilateral rales present in lower lung sheehan Supplemental oxygen administered, patient titrated up to 6 L oxygen via nasal cannula to increase oxygen saturation greater than 90%. 162 mg aspirin administered. X1 sublingual nitro administered with improvement in symptoms Subsequent diagnostic work-up ensued concerning for acute exacerbation of CHF. later came and assisted with further history. He has history of exacerbations like these in the past. It is unknown what his ejection fraction is Patient placed on BiPAP and 80mg IV lasix administered while in ER setting with continued improvement in symptoms. Nonetheless, he is still unfit for discharge home. He will require continued inpatient medical management and intervention I contacted on-call hospitalist and reviewed case with him at length, he accepted patient under his care for admission. I updated patient and on proposed plan of care and they were amenable. All questions and concerns addressed prior to admission Critical Care Time This patient required critical care. Due to the fact that the patient required a significant amount of one on one physician - patient contact time, ordering and review of studies, arranging urgent treatment with development of a management plan, evaluation of patients response to treatment with frequent reassessments, and discussions with other providers this patient required 40 minutes of critical care time. Critical care time was indicated due to the inherent instability and/or potential for instability in this patient. The critical care time that is allocated to this patient is above and beyond any time spent on any other billable procedures performed on this patient. Dragon Disclaimer Dragon Disclaimer This electronic medical record was generated, in whole or in part, using a voice recognition dictation system. Departure Departure: Impression: Primary Impression: Acute exacerbation of congestive heart failure Additional Impression: Acute respiratory failure with hypoxia Disposition: ADMITTED INPATIENT Admitting Physician: Kulwinder Green Condition: IMPROVED Referrals: KULWINDER POST MD (PCP) Problem Qualifiers JESUS MEDEROS DO January 24, 2021 22:07
[2021-01-24] MEDS ORDERED: ASPIRIN CHEWABLE 81 MG TABLET. PO ONE (22:15)
[2021-01-24] MEDS ORDERED: NITROGLYCERIN SUBLINGUAL 0.4 MG BOTTLE OF 25. SL PRN ×2 (22:15→23:00)
[2021-01-24 22:31] LABS: CREATININE 1.7 mg/dL (0.7-1.3)
[2021-01-24 22:43] LABS: ALBUMIN 3.6 g/dL (3.4-5.0); ALBUMIN/GLOBULIN RATIO 0.9 (1.0-1.7); TOTAL BILIRUBIN 1.1 mg/dL (0.2-1.0); TOTAL PROTEIN 7.5 g/dL (6.4-8.2)
[2021-01-24 22:50] LABS: BASO % 0 % (0-3); EOS % 0 % (0-3); HEMATOCRIT 37.1 % (39.0-53.0); HEMOGLOBIN 11.8 g/dL (13.0-17.5); LYMPH # 0.5 x10^3/uL (1.0-4.8); LYMPH % 4 % (24-48); MEAN CORPUSCULAR HEMOGLOBIN 27 pg (25-35); MEAN CORPUSCULAR HGB CONC 32 g/dL (31-37); MEAN CORPUSCULAR VOLUME 85 fL (79-100); MONO # 0.8 x10^3/uL (0.0-1.1); MONO % 7 % (0-9); NEUT # 9.8 x10^3uL (1.8-7.7); NEUT % 88 % (31-73); RED BLOOD COUNT 4.38 x10^6/uL (4.30-5.70); RED CELL DISTRIBUTION WIDTH 18.4 % (11.5-14.5); WHITE BLOOD COUNT 11.1 x10^3/uL (4.0-11.0)
--- NOTE | 2021-01-24 22:52 | RAD ---
XR CHEST 1V INDICATION: Reason: SHORTNESS OF BREATH / Spl. Instructions: / History: . COMPARISON STUDY: 06/29/2020. FINDINGS: Life Support Devices: Left pectoral pacemaker with leads overlying the right atrium and right ventric le. Lungs: Low lung volume. Bilateral perihilar and basilar opacities. Indistinct pulmonary vasculature Pleura: Moderate right and small left pleural effusion. Heart and Mediastinum: Cardiomegaly. Tortuosity of the thoracic aorta. IMPRESSION: 1. Bilateral perihilar and basilar opacities, likely pulmonary edema or multifocal infection. 2. Moderate right and small left pleural effusion. Electronically signed by: Mello Diaz MD (01/24/2021 10:49 PM) [facility]
[2021-01-24] MEDS ORDERED: ONDANSETRON PF 4 MG/2 ML VIAL. IVP PRN (23:00)
[2021-01-24] MEDS ORDERED: ACETAMINOPHEN 325 MG TABLET PO PRN (23:00)
[2021-01-24] MEDS ORDERED: FUROSEMIDE 40 MG/4 ML VIAL IVP ONE (23:00)
[2021-01-24 23:36] LABS: PLATELET COUNT 138 x10^3/uL (140-400)
[2021-01-25] VITALS (7 sets, daily range): BP systolic 132–159; BP diastolic 50–77
--- NOTE | 2021-01-25 01:48 | EKG ---
[address] [address] Test Date: 2021-01-24 Test Time: 21:55:50 Pat Name: ERICH MANZO Department: Room: Gender: M Winder Operator: : [id number] Requested By: JESUS MEDEROS Order Number: [id number] Reading MD: Measurements Intervals [place] Rate: 81 P: 3 [place]: 206 QRS: 29 QRSD: 164 T: -17 QT: 422 QTc: 496 Interpretive Statements SINUS RHYTHM LEFT BUNDLE BRANCH BLOCK ABNORMAL ECG RI6.02 No previous ECG available for comparison
[2021-01-25 05:00] LABS: CALCIUM 8.4 mg/dL (8.5-10.1); CREATININE 1.7 mg/dL (0.7-1.3); POTASSIUM 3.4 mmol/L (3.5-5.1)
--- NOTE | 2021-01-25 11:57 | HP ---
ADMIT DATE: 01/25/2021 ATTENDING PHYSICIAN: Dr. Green. CHIEF COMPLAINT: Shortness of breath. HISTORY OF PRESENT ILLNESS: The patient is a very pleasant 80-year-old gentleman admitted through the ED with increasing shortness of breath. He has a longstanding complicated cardiac history, a year ago he had a TAVR procedure at [facility] by the dress draper, Dr. Valle. Since that time, 2 weeks ago, he had placement of permanent pacemaker in the left antecubital fossa. He has been doing some yard work. He has also been drinking quite a bit of fluids. He has a longstanding history of permanent atrial fibrillation. He has been on Eliquis. He denied any recent fevers, chills or COVID exposure. In the ED, chest x-ray demonstrated vascular congestion and pleural effusion. He was given a dose of Lasix. By the time he got up here, he was doing better. He had diuresed very well. His oxygen saturation was 96% on room air. As also part of the workup, he had serial cardiac enzymes drawn. His troponin levels were elevated slightly. He has no symptoms. He denied any chest pain. I suspect this is due to demand ischemia from his heart failure. In any event, I have asked our dress draper here to review the case. He is feeling better to the point he wants to go home. PAST MEDICAL HISTORY: Significant for the TAVR procedure a year ago. He has acute on chronic congestive heart failure, permanent atrial fibrillation, type 2 diabetes, hypertension and obesity. CURRENT MEDICATIONS: Reviewed. He was on ascorbic acid, aspirin, Coreg 25 mg b.i.d., fluticasone, Amaryl, Benicar, and vitamin D. ALLERGIES: HE HAS ALLERGIES TO AMLODIPINE AND ATORVASTATIN. SOCIAL HISTORY: He was a smoker in the past. He is retired. He lives with his . FAMILY HISTORY: Noncontributory. REVIEW OF SYSTEMS: Significant for the permanent pacemaker. He denied any chest pain or palpitations. No nausea or vomiting. All other systems were reviewed and turned to be negative. PHYSICAL EXAMINATION: GENERAL: When I saw him, this is a very pleasant gentleman, alert and oriented. He was in civilian clothes. INITIAL VITAL SIGNS: When I saw him, he had a blood pressure of 131/63 mmHg, pulse is 64 and regular, temperature 97.5 degrees Fahrenheit, oxygen saturation 93% on 2 liters by nasal cannula, repeated later was 95% on room air. HEENT: Head is without trauma. Pupils are reactive. Sclerae nonicteric. The oropharynx is clear. LUNGS: Diffuse rales at the base. CARDIOVASCULAR: Showed regular heart tones. No gallops. ABDOMEN: Obese, protuberant. No organomegaly. Bowel sounds are hypoactive. EXTREMITIES: Show 2+ edema. NEUROLOGIC: Finding focally intact. SKIN: Warm and dry. PERTINENT LABORATORY STUDIES: His hemoglobin is 11.8 g/dL, white count 11,100. Sodium 145 mEq, potassium 3.4 mEq, creatinine is 1.7 mg/dL. The first set of troponin was 0.08, second troponin 0.133 and the third set was 0.177. Again, he has no symptoms. EKG is nondiagnostic. The chest x-ray on admission showed bilateral perihilar opacities, pulmonary edema, moderate right and small left pleural effusion. ASSESSMENT: 1. An 80-year-old gentleman with acute on chronic congestive heart failure with exacerbation, aggravated by increased oral intake. 2. Recent permanent pacemaker for sick sinus syndrome. 3. Paroxysmal atrial fibrillation. 4. Stress demand ischemia with elevation of cardiac enzymes. 5. Type 2 diabetes. 6. Essential hypertension. PLAN: 1. Admit to the inpatient unit. 2. Continue diuresis. 3. Continue home meds. 4. Daily weights. 5. Serial chemistries. 6. Formal cardiology consultation to review his lab work and clinical status. VIRAL DR: Kae TID: [id number] CC: KULWINDER POST
[2021-01-25] MEDS ORDERED: AMIO200T6 PO (12:13)
[2021-01-25] MEDS ORDERED: POTA20TA4 PO (12:13)
[2021-01-25] MEDS ORDERED: FURO40TA4 PO (12:13)
[2021-01-25] MEDS ORDERED: ACET325T21 PO (12:13)
[2021-01-25] MEDS ORDERED: PRAV10TA2 PO (12:13)
[2021-01-25] MEDS ORDERED: DOXY100C2 PO (12:13)
[2021-01-25] MEDS ORDERED: AMLO-186 PO (12:13)
[2021-01-25] MEDS ORDERED: APIX2.5T PO (12:13)
[2021-01-25] MEDS ORDERED: ACETAMINOPHEN 325 MG TABLET PO PRN (12:15)
[2021-01-25] MEDS ORDERED: NON FORMULARY ITEM (Fluticasone/Salmeterol (Advair 500-50 Diskus) 1 PUFF) IH PRN (12:15)
[2021-01-25] MEDS: GLIMEPIRIDE 2 MG TABLET PO SCH (14:35)
[2021-01-25] MEDS: amLODIPine BESYLATE 5 MG TABLET PO SCH (14:35)
[2021-01-25] MEDS: POTASSIUM CHLORIDE 20 MEQ TABLET.ER. PO SCH (14:35)
[2021-01-25] MEDS: LOSARTAN 50 MG TABLET. PO SCH (14:36)
[2021-01-25] MEDS: FUROSEMIDE 40 MG TABLET PO SCH (14:36)
[2021-01-25] MEDS: APIXABAN 2.5 MG TABLET PO SCH ×2 (14:37→21:30)
[2021-01-25] MEDS: AMIODARONE HCL 200 MG TABLET. PO SCH (14:37)
[2021-01-25] MEDS: CARVEDILOL 12.5 MG TABLET PO SCH ×2 (14:58→16:52)
[2021-01-25] MEDS ORDERED: ALBUTEROL SULFATE 2.5 MG/3 ML NEBU. NEB PRN (16:00)
--- NOTE | 2021-01-25 16:53 | NUR ---
SHIFT NOTE PT admitted to ICU5 at beginning of shift. Pt later moved to [facility] and downgraded to Tele. Pt had a pacemaker placed on 01/07/21. Pt states he recently cut the grass and shortly after, he developed shortness of breath and chest pain. Pt then went to ER last night. Pt admitted due to continued SOB, cardiology consult and upward trending troponins. Pt found to be 80s on RA and placed on BiPAP. Upon arrival to [facility], pt on RA in mid 90s and no CP or SOB. Cardiology to see pt before planned discharge tomorrow. Will continue to monitor. SARAH, RN
[2021-01-25] MEDS ORDERED: CARVEDILOL 12.5 MG TABLET PO SCH (17:00)
[2021-01-25] MEDS ORDERED: BUDESONIDE 0.5 MG/2 ML NEBU NEB PRN (20:00)
[2021-01-25] MEDS ORDERED: APIXABAN 2.5 MG TABLET PO SCH (21:00)
[2021-01-26 06:51] VITALS: BP 131/69
[2021-01-26] MEDS ORDERED: FUROSEMIDE 40 MG/4 ML VIAL IVP ONE (08:00)
[2021-01-26] MEDS: FUROSEMIDE 40 MG TABLET PO SCH ×2 (08:03→09:23)
[2021-01-26] MEDS ORDERED: MAGNESIUM SULFATE 1GM 100 ML IV ONE (08:15)
[2021-01-26] MEDS ORDERED: POTASSIUM CHLORIDE 20 MEQ TABLET.ER. PO ONE (08:15)
[2021-01-26] MEDS ORDERED: GLIMEPIRIDE 2 MG TABLET PO SCH (09:00)
[2021-01-26] MEDS ORDERED: FUROSEMIDE 40 MG TABLET PO SCH (09:00)
[2021-01-26] MEDS: amLODIPine BESYLATE 5 MG TABLET PO SCH (09:00)
[2021-01-26] MEDS ORDERED: POTASSIUM CHLORIDE 20 MEQ TABLET.ER. PO SCH (09:00)
[2021-01-26] MEDS: POTASSIUM CHLORIDE 20 MEQ TABLET.ER. PO SCH (09:00)
[2021-01-26] MEDS: APIXABAN 2.5 MG TABLET PO SCH ×2 (09:22→20:14)
[2021-01-26] MEDS: CHOLECALCIFEROL (VITAMIN D3) 1,000 UNIT TABLET PO SCH (09:22)
[2021-01-26] MEDS: ASCORBIC ACID 500 MG TABLET PO SCH (09:22)
[2021-01-26] MEDS: GLIMEPIRIDE 2 MG TABLET PO SCH (09:22)
[2021-01-26] MEDS: AMIODARONE HCL 200 MG TABLET. PO SCH (09:22)
[2021-01-26] MEDS: SIMVASTATIN 10 MG TABLET PO SCH (09:23)
[2021-01-26] MEDS: LOSARTAN 50 MG TABLET. PO SCH (09:23)
[2021-01-26] MEDS: CARVEDILOL 12.5 MG TABLET PO SCH ×2 (09:24→18:05)
[2021-01-26 11:00] VITALS: BP 164/82
[2021-01-26] MEDS: HYDROcodone/CHLORPHEN POLIS 5 ML SUS.ER.12H PO PRN (11:16)
--- NOTE | 2021-01-26 12:48 | PDOC2 ---
CONSULT DOS: DATE: 01/26/21 TIME: 12:48 Reason for Consult: Elevated troponin level and congestive heart failure Referring Physician: Dr. Green Chief Complaint Shortness of breath Source: Chart review, Patient Problem List Problems Medical Problems: (1) Acute exacerbation of congestive heart failure Status: Acute (2) Acute respiratory failure with hypoxia Status: Acute History of Present Illness 80-year-old male with history of aortic stenosis s/p TAVR in 2019, paroxysmal atrial fibrillation, sick sinus syndrome s/p recent permanent pacemaker implantation 2 weeks ago, usually followed by Dr. Valle with [facility] presented complaining of progressive shortness of breath and was diagnosed with congestive heart failure. His troponin level was slightly elevated prompting cardiology consultation. He denied any chest pain, palpitations or syncope. Upon further interrogation, patient stated that he has been drinking excessive amount of fluids, more than 1 gallon per day. Past Medical History Severe aortic stenosis s/p TAVR in April 2019 Sick sinus syndrome s/p recent permanent pacemaker implantation Hypertension Paroxysmal atrial fibrillation Hyperlipidemia Diabetes mellitus type 2 Past Surgical History Permanent pacemaker implantation Family History Negative for premature coronary artery disease Social History Patient quit smoking several years ago and denied any alcohol or drug abuse Current Medications Current Medications Aspirin (Aspirin Chewable) 162 mg 1X ONCE PO Last administered on 01/24/21at 22:05; Start 01/24/21 at 22:15; Stop 01/24/21 at 22:16; Status DC Nitroglycerin (Nitrostat) 0.4 mg PRN Q5MIN PRN SL CHEST PAIN Last administered on 01/24/21at 22:06; Start 01/24/21 at 22:15 Furosemide (Lasix) 80 mg 1X ONCE IVP Last administered on 01/24/21at 23:34; Start 01/24/21 at 23:00; Stop 01/24/21 at 23:01; Status DC Ondansetron HCl (Zofran) 4 mg PRN Q4HRS PRN IVP NAUSEA/VOMITING; Start 01/24/21 at 23:00; Stop 01/25/21 at 22:59; Status DC Acetaminophen (Tylenol) 650 mg PRN Q4HRS PRN PO FEVER > 100.3'F; Start 01/24/21 at 23:00; Stop 01/25/21 at 12:30; Status DC Nitroglycerin (Nitrostat) 0.4 mg PRN Q5MIN PRN SL CHEST PAIN; Start 01/24/21 at 23:00; Stop 01/25/21 at 12:20; Status DC Acetaminophen (Tylenol) 650 mg PRN DAILY PRN PO pain or fever; Start 01/25/21 at 12:15 Amiodarone HCl (Cordarone) 200 mg DAILY PO Last administered on 01/26/21at 09:22; Start 01/25/21 at 13:45 Amlodipine Besylate (Norvasc) 5 mg DAILY PO Last administered on 01/25/21at 14:35; Start 01/25/21 at 13:45 Apixaban (Eliquis) 2.5 mg BID PO ; Start 01/25/21 at 21:00; Stop 01/25/21 at 14:18; Status DC Furosemide (Lasix) 40 mg DAILY PO ; Start 01/26/21 at 09:00; Stop 01/25/21 at 14:16; Status DC Potassium Chloride (Klor-Con) 20 meq DAILY PO ; Start 01/26/21 at 09:00; Stop 01/25/21 at 14:18; Status DC Ascorbic Acid (Vitamin C) 1,000 mg DAILY PO Last administered on 01/26/21at 09:22; Start 01/26/21 at 09:00 Carvedilol (Coreg) 25 mg BIDWMEALS PO ; Start 01/25/21 at 17:00; Stop 01/25/21 at 14:41; Status DC Non-Formulary Medication (Fluticasone/ Salmeterol (Advair 500-50 Diskus)) 1 puff BID PRN IH SHORTNESS OF BREATH; Start 01/25/21 at 12:15; Status UNV Glimepiride (Amaryl) 4 mg DAILY PO ; Start 01/26/21 at 09:00; Stop 01/25/21 at 14:18; Status DC Losartan Potassium (Cozaar) 100 mg DAILY PO Last administered on 01/26/21at 09:23; Start 01/25/21 at 13:45 Simvastatin (Zocor) 10 mg DAILY PO Last administered on 01/26/21at 09:23; Start 01/26/21 at 09:00 Vitamin D (Vitamin D3) 1,000 unit DAILY PO Last administered on 01/26/21at 09: 22; Start 01/26/21 at 09:00 Albuterol Sulfate (Ventolin) 2.5 mg PRN QID PRN NEB SHORTNESS OF BREATH; Start 01/25/21 at 16:00 Budesonide (Pulmicort) 0.5 mg PRN BID PRN NEB SHORTNESS OF BREATH; Start 01/25/21 at 20:00 Furosemide (Lasix) 40 mg DAILY PO Last administered on 01/25/21at 14:36; Start 01/25/21 at 14:30 Apixaban (Eliquis) 2.5 mg BID PO Last administered on 01/26/21at 09:22; Start 01/25/21 at 14:30 Glimepiride (Amaryl) 4 mg DAILY PO Last administered on 01/26/21 09:22; Start 01/25/21 at 14:30 Potassium Chloride (Klor-Con) 20 meq DAILY PO Last administered on 01/25/21at 14:35; Start 01/25/21 at 14:30 Carvedilol (Coreg) 25 mg BIDWMEALS PO Last administered on 01/26/21at 09:24; Start 01/25/21 at 14:45 Furosemide (Lasix) 80 mg 1X ONCE IVP Last administered on 01/26/21at 09:21; Start 01/26/21 at 08:00; Stop 01/26/21 at 08:12; Status DC Potassium Chloride (Klor-Con) 40 meq 1X ONCE PO Last administered on 01/26/21at 09:22; Start 01/26/21 at 08:15; Stop 01/26/21 at 08:16; Status DC Magnesium Sulfate 100 ml @ 100 mls/hr 1X ONCE IV Last administered on 01/26/21at 09:25; Start 01/26/21 at 08:15; Stop 01/26/21 at 09:14; Status DC Chlorphenir/ Hydrocodone Polistirex (Tussionex) 5 ml PRN Q12HR PRN PO COUGH Last administered on 01/26/21at 11:16; Start 01/26/21 at 10:45 Active Scripts Active Reported Pravastatin Sodium 10 Mg Tablet 1 Tab PO DAILY Klor-Con M20 (Potassium Chloride) 20 Meq Tab.er.prt 20 Meq PO DAILY Doxycycline Hyclate 100 Mg Capsule 1 Cap PO BID Furosemide 40 Mg Tablet 1 Tab PO DAILY Eliquis (Apixaban) 2.5 Mg Tablet 2.5 Mg PO DAILY Acetaminophen 325 Mg Tablet 2 Tab PO PRN DAILY PRN 30 Days Amiodarone Hcl 200 Mg Tablet 1 Tab PO DAILY Amlodipine Besylate 5 Mg Tablet 1 Tab PO DAILY [vitamin d] 1,000 Intlu PO DAILY Vitamin C (Ascorbic Acid) 500 Mg Capsule 1,000 Mg PO DAILY Advair 500-50 Diskus (Fluticasone/Salmeterol) 1 Each Disk.w.dev 1 Puff IH BID PRN Amaryl (Glimepiride) 4 Mg Tablet 1 Tab PO DAILY Pravachol (Pravastatin Sodium) 20 Mg Tablet 10 Mg PO DAILY Coreg (Carvedilol) 25 Mg Tablet 25 Mg PO BIDWMEALS Coreg Cr (Carvedilol Phosphate) 20 Mg Cpmp.24hr 20 Mg PO DAILY Benicar (Olmesartan Medoxomil) 40 Mg Tablet 40 Mg PO DAILY Allergies: Coded Allergies: atorvastatin (Verified Allergy, Unknown, 06/29/20) metformin (Verified Adverse Reaction, Unknown, dizziness, diarrhea, nausea, 01/25/21) PSYCHOLOGICAL ROS: No: Hallucinations Eyes: No: Loss of vision HEENT: No: Epistaxis Respiratory: YES: Orthopnea, Shortness of breath; No: Hemoptysis Cardiovascular: No: Chest Pain Gastrointestinal: No: Vomiting, Diarrhea Genitourinary: No: Henaturia Neurological: No: Seizures Skin: No: Rash General: Alert, No acute distress HEENT: Atraumatic Lungs: Clear to auscultation Heart: Regular rate Abdomen: Soft Extremities: Other (1+ pitting edema) Neuro: Normal speech VITALS Vital Signs Date Time Temp Pulse Resp B/P (MAP) Pulse Ox O2 Delivery O2 Flow Rate FiO2 01/26/21 11:00 97.6 65 18 164/82 (109) 95 Room Air 01/24/21 23:30 2.0 Labs Laboratory Tests Test 01/24/21 22:00 01/24/21 22:02 01/24/21 22:35 01/25/21 01:20 Sodium Level 141 mmol/L (136-145) Potassium Level 4.0 mmol/L (3.5-5.1) Chloride Level 104 mmol/L (98-107) Carbon Dioxide Level 28 mmol/L (21-32) Anion Gap 9 (6-14) Blood Urea Nitrogen 25 mg/dL (8-26) Creatinine 1.7 mg/dL (0.7-1.3) Estimated GFR (Cockcroft-Gault) 39.0 BUN/Creatinine Ratio 15 (6-20) Glucose Level 148 mg/dL (70-99) Lactic Acid Level 1.4 mmol/L (0.4-2.0) Calcium Level 9.0 mg/dL (8.5-10.1) Total Bilirubin 1.1 mg/dL (0.2-1.0) Aspartate Amino Transf (AST/SGOT) 17 U/L (15-37) Alanine Aminotransferase (ALT/SGPT) 17 U/L (16-63) Alkaline Phosphatase 112 U/L (46-116) Troponin I Quantitative 0.085 ng/mL (0-0.055) 0.133 ng/mL (0-0.055) YF-Xaf-B-Type Natriuretic Peptide 54545 pg/mL (0-449) Total Protein 7.5 g/dL (6.4-8.2) Albumin 3.6 g/dL (3.4-5.0) Albumin/Globulin Ratio 0.9 (1.0-1.7) Bedside Venous pH 7.39 (7.32-7.42) Bedside Venous pCO2 47 mmHg (41-51) Bedside Venous pO2 57 mmHg (20-40) Venous Blood HCO3 29 mmol/L (24-28) POC Venous O2 Saturation (Corrina) 88 % Bedside FiO2 40 White Blood Count 11.1 x10^3/uL (4.0-11.0) Red Blood Count 4.38 x10^6/uL (4.30-5.70) Hemoglobin 11.8 g/dL (13.0-17.5) Hematocrit 37.1 % (39.0-53.0) Mean Corpuscular Volume 85 fL (79-100) Mean Corpuscular Hemoglobin 27 pg (25-35) Mean Corpuscular Hemoglobin Concent 32 g/dL (31-37) Red Cell Distribution Width 18.4 % (11.5-14.5) Platelet Count 138 x10^3/uL (140-400) Neutrophils (%) (Auto) 88 % (31-73) Lymphocytes (%) (Auto) 4 % (24-48) Monocytes (%) (Auto) 7 % (0-9) Eosinophils (%) (Auto) 0 % (0-3) Basophils (%) (Auto) 0 % (0-3) Neutrophils # (Auto) 9.8 x10^3uL (1.8-7.7) Lymphocytes # (Auto) 0.5 x10^3/uL (1.0-4.8) Monocytes # (Auto) 0.8 x10^3/uL (0.0-1.1) Eosinophils # (Auto) 0.0 x10^3/uL (0.0-0.7) Basophils # (Auto) 0.0 x10^3/uL (0.0-0.2) Test 01/25/21 04:40 01/26/21 07:39 Sodium Level 145 mmol/L (136-145) Potassium Level 3.4 mmol/L (3.5-5.1) Chloride Level 105 mmol/L (98-107) Carbon Dioxide Level 31 mmol/L (21-32) Anion Gap 9 (6-14) Blood Urea Nitrogen 28 mg/dL (8-26) Creatinine 1.7 mg/dL (0.7-1.3) Estimated GFR (Cockcroft-Gault) 39.0 Glucose Level 120 mg/dL (70-99) Calcium Level 8.4 mg/dL (8.5-10.1) Troponin I Quantitative 0.177 ng/mL (0-0.055) Glucose (Fingerstick) 66 mg/dL (70-99) Assessment/Plan 1. Congestive heart failure, most probably acute on chronic diastolic, probably secondary to excessive oral fluid intake. Continue diuresis with Lasix. 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 2. Slight troponin elevation, most probably demand ischemia. Doubt ACS. Ischemic evaluation could be considered as an outpatient if this has not been done recently. 3. Sick sinus syndrome s/p recent permanent pacemaker implantation. Incision healed well. He denied any syncope or near syncope. 4. Paroxysmal atrial fibrillation: Telemetry showed atrial paced rhythm. Continue Eliquis for stroke prophylaxis. 5. Severe aortic stenosis s/p TAVR in 2019, clinically stable 5. Hypertension: Labile but relatively well controlled. Continue current medical regimen. 6. Hyperlipidemia: Continue statins 7. Diabetes mellitus type 2: Treat per IM Thank you for your consultation JORDANA MUNROE MD January 26, 2021 12:48
[2021-01-26 15:47] VITALS: BP 162/76
[2021-01-26 19:00] VITALS: BP 147/62
--- NOTE | 2021-01-26 22:01 | PN ---
DATE: 01/26/2021 SUBJECTIVE: The patient still has exertional dyspnea. He is comfortable at rest. He denies any chest pain or discomfort. No pressure. OBJECTIVE FINDINGS: VITAL SIGNS: Blood pressure is 131/69 mmHg, pulse is 65 and regular. He is afebrile. Oxygen saturation 93% on room air. HEENT: Head is without trauma. Pupils are reactive. Sclerae nonicteric. Oropharynx is clear. NECK: Supple, no bruits identified. LUNGS: Bibasilar crackles. CARDIOVASCULAR: Regular heart tones. No gallops. ABDOMEN: Soft. EXTREMITIES: Showed 2+ pitting edema. SKIN: Warm and dry. LABORATORY DATA: Potassium yesterday was 3.4 mEq. ASSESSMENT: 1. An 80-year-old gentleman with acute on chronic congestive heart failure. 2. Chronic kidney disease. 3. Volume overload. 4. Elevation of cardiac enzymes, stress demand ischemia versus non-ST elevation myocardial infarction. 5. Essential hypertension. 6. Diabetes. PLAN: 1. Lasix intravenously today. He is still on the [place]. 2. Potassium and magnesium replacement. 3. Continue other home meds. 4. Recs per cardiology. 5. Follow up chemistry in the morning. OWEN DR: Kae TID: [id number]
[2021-01-27 00:10] VITALS: BP 138/62
[2021-01-27 06:15] VITALS: BP 151/71
[2021-01-27] MEDS: CHOLECALCIFEROL (VITAMIN D3) 1,000 UNIT TABLET PO SCH (08:05)
[2021-01-27] MEDS: APIXABAN 2.5 MG TABLET PO SCH (08:06)
[2021-01-27] MEDS: GLIMEPIRIDE 2 MG TABLET PO SCH (08:06)
[2021-01-27] MEDS: LOSARTAN 50 MG TABLET. PO SCH (08:06)
[2021-01-27] MEDS: AMIODARONE HCL 200 MG TABLET. PO SCH (08:06)
[2021-01-27] MEDS: POTASSIUM CHLORIDE 20 MEQ TABLET.ER. PO SCH (08:06)
[2021-01-27] MEDS: CARVEDILOL 12.5 MG TABLET PO SCH (08:07)
[2021-01-27] MEDS: ASCORBIC ACID 500 MG TABLET PO SCH (08:07)
[2021-01-27] MEDS: SIMVASTATIN 10 MG TABLET PO SCH (08:07)
[2021-01-27 08:09] VITALS: BP 151/71
[2021-01-27] MEDS: amLODIPine BESYLATE 5 MG TABLET PO SCH (08:09)
[2021-01-27] MEDS: HYDROcodone/CHLORPHEN POLIS 5 ML SUS.ER.12H PO PRN (08:09)
--- NOTE | 2021-01-27 18:06 | DS ---
DATE OF DISCHARGE: 01/27/2021 ATTENDING PHYSICIAN: Dr. Green. FINAL DISCHARGE DIAGNOSES: 1. Acute on chronic congestive heart failure, systolic, exacerbation, aggravated by increased oral intake of fluids. 2. Sick sinus syndrome with recent permanent pacemaker. 3. Paroxysmal atrial fibrillation. 4. History of severe aortic stenosis, status post transcatheter aortic valve replacement procedure. 5. Stress demand ischemia with elevation of cardiac enzymes. 6. Type 2 diabetes. 7. Essential hypertension. HISTORY AND PHYSICAL: The patient is an 80-year-old gentleman with multiple cardiac issues. He recently had placement of permanent pacemaker. He also had a previous TAVR procedure for aortic stenosis. He was short of breath. He was seen in the ED, given diuretics. Chest x-ray showed vascular congestion. He was admitted in with acute on chronic congestive heart failure. PHYSICAL EXAMINATION: Please see the dictated note. PERTINENT LABORATORY AND X-RAY STUDIES: His admission hemoglobin was 11.8 g/dL, white count 11,100. Chemistry panel done serially. Sodium 145, potassium 3.4 mEq, he is on replacement. Creatinine 1.7 mg/dL, which is baseline. Three sets of cardiac enzymes, slightly elevated, peaking at 0.17. Nonfasting blood sugar 118. COURSE IN THE HOSPITAL: The patient was admitted. He had serial enzymes done and formal cardiology consultation was entertained. Please refer to Dr. Perez's note, he felt that the enzymes elevation were due to demand ischemia without acute coronary syndrome. He responded well to intravenous Lasix. We had daily weights, IV Lasix and fluid restriction. By the fourth hospital day, his blood pressure was 138/62, his pulse was 71 and regular. He is afebrile and oxygen saturation 95% on room air. His lungs were clear and heart rate was regular. He was ready for discharge. At this time, he is discharged home with no significant changes in his medication. He should continue his amiodarone 200 mg daily, amlodipine 5 mg daily, Eliquis 2.5 mg b.i.d., vitamin C, Coreg 25 mg b.i.d., doxycycline to complete, fluticasone spray daily, Lasix 40 mg daily, Amaryl 4 mg daily, Benicar 40 mg daily, potassium in the form of K-Dur 20 mEq daily, pravastatin 10 mg daily and vitamin D. His prognosis is fair. He was discharged then from our hospital in stable condition with explicit drug and followup care. TOTAL DISCHARGE TIME SPENT: [address]: Kae TID: [id number] CC: KULWINDER POST
== END 2021-01-27 09:45 | disposition home or self-care (01) | DRG 291 ==
LOC: ER 21:47 → ICU 01-25 07:08 → 1 SOUTH 01-25 16:51
PROVIDERS: ADMIT Hospitalist; ATTEND Hospitalist
PROC: 5A09357 Assistance with Respiratory Ventilation, Less than 24 Consecutive Hours, Continuous Positive Airway Pressure (ICD-10-PCS; principal; 2021-01-25)
DX: I13.0 Hypertensive heart and chronic kidney disease with heart failure and stage 1 through stage 4 chronic kidney disease, or unspecified chronic kidney disease (principal); I50.43 Acute on chronic combined systolic (congestive) and diastolic (congestive) heart failure; J96.01 Acute respiratory failure with hypoxia; I24.8 Other forms of acute ischemic heart disease; I48.21 Permanent atrial fibrillation; E11.22 Type 2 diabetes mellitus with diabetic chronic kidney disease; E78.5 Hyperlipidemia, unspecified; I35.0 Nonrheumatic aortic (valve) stenosis; N18.9 Chronic kidney disease, unspecified; Z79.01 Long term (current) use of anticoagulants; Z79.84 Long term (current) use of oral hypoglycemic drugs; Z79.899 Other long term (current) drug therapy; Z87.891 Personal history of nicotine dependence; Z95.2 Presence of prosthetic heart valve; E66.9 Obesity, unspecified; Z88.8 Allergy status to other drugs, medicaments and biological substances
CPT/HCPCS: 36415; 71045; 80048; 80053; 82803; 82947; 83605; 83880; 84484; 85025; 93005; 94660; 96365; 96375; 96376; 99291; J1940; J3475

== ENCOUNTER 2021-05-21 12:35 | Observation (INO) | payer MEDICARE, BC ==
[~2021-05-21] VITALS: Ht 180.3 cm; Wt 124.5 kg
[~2021-05-21 12:35] MED LIST changes: +ACET325T21 PO; +AMIO200T6 PO; +AMLO-186 PO; +APIX2.5T PO; +DOXY100C3 PO; +FURO40TA4 PO; +POTA-121 PO; +PRAV10TA2 PO
[2021-05-21] MEDS ORDERED: FUROSEMIDE 40 MG/4 ML VIAL IVP ONE (12:45)
[2021-05-21] MEDS ORDERED: ASPIRIN CHEWABLE 81 MG TABLET. PO ONE (12:45)
[2021-05-21] MEDS ORDERED: NITROGLYCERIN SUBLINGUAL 0.4 MG BOTTLE OF 25. SL PRN ×2 (12:45→14:45)
--- NOTE | 2021-05-21 12:46 | PHYS DOC ---
Past History Past Medical History: A-Fib, CHF, Diabetes, Hypertension Past Surgical History: Other Additional Past Surgical Histo: aortic valve replacement, Alcohol Use: None Adult General Chief Complaint Chief Complaint: SHORTNESS OF BREATH HPI HPI Patient is an 81-year-old male presenting via EMS for acute on chronic respiratory distress. Patient has known history of cardiac issues, currently has a pacemaker for A. fib and has known history of HFrEF with unknown ejection fraction. Per , patient was recently had his Lasix discontinued and has gained approximately 5 to 10 pounds over the past 36 hours. He had called his shelter monitor at [facility] and it was recommended that he present for admission and potential need for stress test at stand-alone [facility] ER facility but in route in POV, he began to become short of breath. He was recently started on 3 L oxygen via nasal cannula at nighttime only but has not been using this during the day. got concerned given patient appearance and inability to catch his breath and so, EMS was called. On arrival, patient was found to be in acute respiratory distress. He was given x1 nitro and placed on CPAP and immediately transferred to our facility for evaluation. On arrival, patient speaking in few word sentences only and so history is limited. He denies any ripping or tearing chest pain or pressure, just feels like he is being smothered Review of Systems Review of Systems Fourteen body systems of review of systems have been reviewed. See HPI for pertinent positives and negative responses, other gr all other systems are negative, non-pertinent or non-contributory Allergies Allergies Allergies Coded Allergies Type Severity Reaction Last Updated Verified atorvastatin Allergy Unknown 06/29/20 Yes metformin Adverse Reaction Unknown dizziness, diarrhea, nausea 01/25/21 Yes Physical Exam Physical Exam Constitutional: Age-appropriate, appears grossly fluid overloaded, in acute respiratory distress HENT: Normocephalic, atraumatic, bilateral external ears normal, oropharynx moist, no oral exudates, nose normal. Eyes: PERRLA, EOMI, conjunctiva normal, no discharge. Neck: Normal range of motion, no tenderness, supple, no stridor. Cardiovascular: Heart rate tachycardic, sinus rhythm, pacemaker present to left upper chest Lungs & Thorax: Acute respiratory failure on arrival, speaking in few word sentences only, sensory muscle use of neck and abdomen noted, rales present to bilateral lung bases Abdomen: Bowel sounds normal, soft, no tenderness, no masses, no pulsatile masses. Nonsurgical abdomen, no peritoneal signs Skin: Warm, dry, no erythema, no rash. Back: No tenderness, no CVA tenderness. Extremities: No tenderness, no cyanosis, no clubbing, ROM intact, trace edema present to bilateral lower extremities Neurologic: Alert and oriented X 3, grossly normal motor & sensory function, no focal deficits noted. Psychologic: Anxious affect and mood Current Patient Data Vital Signs Vital Signs Date Time Temp Pulse Resp B/P (MAP) Pulse Ox O2 Delivery O2 Flow Rate FiO2 05/21/21 12:35 78 26 155/81 (105) 95 10.0 05/21/21 12:40 BiPAP/CPAP 05/21/21 12:40 97.9 Vital Signs Date Time Temp Pulse Resp B/P (MAP) Pulse Ox O2 Delivery O2 Flow Rate FiO2 05/22/21 05:53 64 17 152/59 (90) 99 Nasal Cannula 6.0 05/22/21 04:00 97.9 Lab Results Laboratory Tests Test 05/21/21 12:45 05/21/21 17:00 05/21/21 20:35 05/21/21 21:07 White Blood Count 10.1 x10^3/uL Red Blood Count 4.49 x10^6/uL Hemoglobin 12.6 g/dL Hematocrit 39.2 % Mean Corpuscular Volume 87 fL Mean Corpuscular Hemoglobin 28 pg Mean Corpuscular Hemoglobin Concent 32 g/dL Red Cell Distribution Width 17.5 % Platelet Count 186 x10^3/uL Neutrophils (%) (Auto) 83 % Lymphocytes (%) (Auto) 11 % Monocytes (%) (Auto) 5 % Eosinophils (%) (Auto) 0 % Basophils (%) (Auto) 1 % Neutrophils # (Auto) 8.4 x10^3uL Lymphocytes # (Auto) 1.1 x10^3/uL Monocytes # (Auto) 0.5 x10^3/uL Eosinophils # (Auto) 0.0 x10^3/uL Basophils # (Auto) 0.0 x10^3/uL Sodium Level 144 mmol/L Potassium Level 4.1 mmol/L Chloride Level 107 mmol/L Carbon Dioxide Level 29 mmol/L Anion Gap 8 Blood Urea Nitrogen 32 mg/dL Creatinine 1.6 mg/dL Estimated GFR (Cockcroft-Gault) 41.7 BUN/Creatinine Ratio 20 Glucose Level 78 mg/dL Calcium Level 8.6 mg/dL Magnesium Level 2.2 mg/dL Total Bilirubin 0.8 mg/dL Aspartate Amino Transf (AST/SGOT) 16 U/L Alanine Aminotransferase (ALT/SGPT) 22 U/L Alkaline Phosphatase 104 U/L Troponin I Quantitative 0.180 ng/mL 0.151 ng/mL 0.165 ng/mL KC-Frl-J-Type Natriuretic Peptide 41428 pg/mL Total Protein 6.5 g/dL Albumin 3.5 g/dL Albumin/Globulin Ratio 1.2 SARS-CoV-2 Antigen (Rapid) Negative Glucose (Fingerstick) 195 mg/dL Current Medications Medications (Trade) Dose Ordered Sig/Mela Route PRN Reason Start Time Stop Time Status Last Admin Dose Admin Aspirin (Aspirin Chewable) 162 mg 1X ONCE PO 05/21/21 12:45 05/21/21 12:53 DC 05/21/21 13:56 Nitroglycerin (Nitrostat) 0.4 mg PRN Q5MIN PRN SL CP RATING > 1/10 05/21/21 12:45 05/22/21 12:44 Furosemide (Lasix) 40 mg 1X ONCE IVP 05/21/21 12:45 05/21/21 12:53 DC 05/21/21 13:57 Enoxaparin Sodium (Lovenox 150mg Syringe) 126 mg 1X ONCE SQ 05/21/21 14:30 05/21/21 14:37 DC 05/21/21 15:33 EKG EKG EKG ordered and interpreted by myself at 1245 hrs. as sinus rhythm at 68 bpm, prolonged QRS at 174 and prolonged QTC at 504 otherwise unremarkable intervals, no axis deviation, nonspecific T wave abnormality noted in lead II, nonspecific ST wave abnormality noted in leads V1 through V3 consistent with history of pacemaker, no STEMI. This EKG was reviewed and confirmed no STEMI by on-call shelter monitor at [facility] Repeat EKG ordered and interpreted by myself at 1331 hrs. is sinus rhythm at 62 bpm, prolonged AR at 222, prolonged QRS at 168 and prolonged QTC at 502, no axis deviation, no STEMI Radiology/Procedures Radiology/Procedures XR CHEST 1V Clinical Indication: Shortness of breath: Comparison: None. Findings: There is left chest dual-chamber pacer. There is stable cardiac enlargement. Atherosclerotic aortic arch. There is mild pulmonary vascular congestion. There are bibasilar airspace opacities. There are moderate right and small left pleural effusions. Findings are similar to prior study. No pneumothorax is seen. Bones appear stable. IMPRESSION: 1. Moderate right and small left pleural effusions. 2. Bibasilar airspace opacities. 3. Pulmonary vascular congestion. Stable cardiomegaly. Correlate for CHF or volume overload. Electronically signed by: Carlos Zuniga MD (05/21/2021 1:32 PM) [id number] Heart Score C/O Chest Pain: No HEART Score for Chest Pain: HEART Score for Chest Pain Response (Comments) Value History Moderately Suspicious [address] Depression 2 Age > 65 2 Risk Factors >3 Risk Factors or Hx CAD 2 Troponin >3 x Normal Limit 2 Total 9 Risk Factors: Risk Factors: DM, Current or recent (<one month) smoker, HTN, HLP, family history of CAD, obesity. Risk Scores: Risk Factors: DM, Current or recent (<one month) smoker, HTN, HLP, family history of CAD, obesity. Course & Med Decision Making Course & Med Decision Making Airway patent, in acute respiratory distress, IV access and vitals obtained on arrival Patient placed in optimal seated/upright position. Patient transferred over to our BiPAP machine. An additional x1 sublingual nitro administered with improvement in patient's respiratory status History somewhat limited initially, physical exam and comprehensive ER work-up concerning for gross fluid overload causing a likely type II NSTEMI. I am concerned patient's fluid overloaded state with recent discontinuation of Lasix and increased weight gain is culprit of today's visit Patient responded to positive pressure, nitrates and IV diuretics with great urine output while in ER setting. Patient's overall respiratory condition greatly improved as he was able to de-escalate from BiPAP onto typical nasal cannula supplemental oxygen and improvement in tachypnea Patient case reviewed with cardiology attending. Patient's x2 EKGs nonconcer mallika for STEMI, parents concerning but consistent with prior history of pacemaker. I disclosed need for hospital admission with patient and . They wanted to investigate potential of transfer to [facility] health facility where they were initially trying to go. I called their facility but given Covid pandemic and capacity issues, patient declined I updated patient and on this conversation, they were amenable to admission here at [facility]. [facility] and [facility], they have both excepted patient care here at [facility] for continued diuresis I disclosed there is no emergent need for a heart cath at present. With that said, joint decision with cardiology attending to administer Lovenox while we continue to diurese. Further discussions will be had regarding provocative cardiac testing or other intervention with business support specialist All questions and concerns addressed with and prior to hospital admission Critical Care Time This patient required critical care. Due to the fact that the patient required a significant amount of one on one physician - patient contact time, ordering and review of studies, arranging urgent treatment with development of a management plan, evaluation of patients response to treatment with frequent reassessments, and discussions with other providers this patient required 40 minutes of critical care time. Critical care time was indicated due to the inherent instability and/or potential for instability in this patient. The critical care time that is allocated to this patient is above and beyond any time spent on any other billable procedures performed on this patient. Dragon Disclaimer Dragon Disclaimer This electronic medical record was generated, in whole or in part, using a voice recognition dictation system. Departure Departure: Impression: Primary Impression: Acute exacerbation of CHF (congestive heart failure) Additional Impression: NSTEMI (non-ST elevated myocardial infarction) Disposition: ADMITTED INPATIENT Admitting Physician: Kulwinder Green Condition: STABLE Referrals: KULWINDER POST MD (PCP) Problem Qualifiers JESUS MEDEROS DO May 21, 2021 12:46
[2021-05-21 13:15] LABS: BASO % 1 % (0-3); EOS % 0 % (0-3); HEMATOCRIT 39.2 % (39.0-53.0); HEMOGLOBIN 12.6 g/dL (13.0-17.5); LYMPH # 1.1 x10^3/uL (1.0-4.8); LYMPH % 11 % (24-48); MEAN CORPUSCULAR HEMOGLOBIN 28 pg (25-35); MEAN CORPUSCULAR HGB CONC 32 g/dL (31-37); MEAN CORPUSCULAR VOLUME 87 fL (79-100); MONO # 0.5 x10^3/uL (0.0-1.1); MONO % 5 % (0-9); NEUT # 8.4 x10^3uL (1.8-7.7); NEUT % 83 % (31-73); RED BLOOD COUNT 4.49 x10^6/uL (4.30-5.70); RED CELL DISTRIBUTION WIDTH 17.5 % (11.5-14.5); WHITE BLOOD COUNT 10.1 x10^3/uL (4.0-11.0)
--- NOTE | 2021-05-21 13:22 | EKG ---
[address] [address] Test Date: 2021-05-21 Test Time: 12:40:05 Pat Name: ERICH MANZO Department: Room: Gender: M International Student Counselor: MARGAUX : 1940 Requested By: JESUS MEDEROS Order Number: [id number] Reading MD: Jovanny Hansen MD Measurements Intervals [place] Rate: 68 P: -90 MN: 154 QRS: 31 QRSD: 174 T: 247 QT: 474 QTc: 504 Interpretive Statements SINUS RHYTHM LBBB Electronically Signed On 05-23-2021 9:14:20 CDT by Jovanny Hansen MD
[2021-05-21 13:28] LABS: CALCIUM 8.6 mg/dL (8.5-10.1); CREATININE 1.6 mg/dL (0.7-1.3); GFR 41.7; POTASSIUM 4.1 mmol/L (3.5-5.1)
[2021-05-21 13:29] LABS: PLATELET COUNT 186 x10^3/uL (140-400)
--- NOTE | 2021-05-21 13:35 | RAD ---
XR CHEST 1V Clinical Indication: Shortness of breath: Comparison: None. Findings: There is left chest dual-chamber pacer. There is stable cardiac enlargement. Atherosclerotic aortic a rch. There is mild pulmonary vascular congestion. There are bibasilar airspace opacities. There are m oderate right and small left pleural effusions. Findings are similar to prior study. No pneumothorax is seen. Bones appear stable. IMPRESSION: 1. Moderate right and small left pleural effusions. 2. Bibasilar airspace opacities. 3. Pulmonary vascular congestion. Stable cardiomegaly. Correlate for CHF or volume overload. Electronically signed by: Carlos Zuniga MD (05/21/2021 1:32 PM) [id number]
[2021-05-21 13:40] LABS: ALBUMIN 3.5 g/dL (3.4-5.0); ALBUMIN/GLOBULIN RATIO 1.2 (1.0-1.7); MAGNESIUM 2.2 mg/dL (1.8-2.4); TOTAL BILIRUBIN 0.8 mg/dL (0.2-1.0); TOTAL PROTEIN 6.5 g/dL (6.4-8.2)
--- NOTE | 2021-05-21 14:17 | EKG ---
[address] [address] Test Date: 2021-05-21 Test Time: 13:26:24 Pat Name: ERICH MANZO Department: Room: Gender: M Strip Polisher: MARGAUX : 1940 Requested By: JESUS MEDEROS Order Number: [id number] Reading MD: Jovanny Hansen MD Measurements Intervals [place] Rate: 62 P: 90 OR: 222 QRS: 33 QRSD: 168 T: 202 QT: 492 QTc: 502 Interpretive Statements SINUS RHYTHM LBBB POOR R WAVE PROGRESSION Electronically Signed On 05-23-2021 9:14:01 CDT by Jovanny Hansen MD
[2021-05-21] MEDS ORDERED: ENOXAPARIN ** NOTE DOSE ** SYRINGE SQ ONE (14:30)
[2021-05-21] MEDS ORDERED: ACETAMINOPHEN 325 MG TABLET PO PRN (14:45)
--- NOTE | 2021-05-21 18:37 | HP ---
ADMIT DATE: 05/21/2021 ADMISSION HISTORY AND PHYSICAL ATTENDING PHYSICIAN: Dr. Green. CHIEF COMPLAINT: Shortness of breath. HISTORY OF PRESENT ILLNESS: The patient is a pleasant 81-year-old gentleman, well known to us from several previous admissions. He has a history of systolic heart failure with reduced ejection fraction. He was on his way to the Cardiology office ____ became short of breath. EMS was called. He is volume overloaded. He has gained at least 10 pounds in weight in the last day and half. He states that his Lasix dose was curtailed. In any event, he was found to be in vascular congestion on chest x-ray. No pneumonia. No fevers. No COVID symptoms. He is admitted then with an exacerbation of congestive heart failure, acute on chronic. PAST MEDICAL HISTORY: Significant for aortic valve replacement, permanent pacemaker recently, paroxysmal atrial fibrillation, congestive heart failure, diabetes, essential hypertension and obesity. ALLERGIES: HE HAS ALLERGIES TO ATORVASTATIN AND METFORMIN. CURRENT MEDICATIONS: Reviewed. He takes scheduled amiodarone 200 mg daily; amlodipine; Eliquis 2.5 mg daily, modified dose; ascorbic acid; Coreg 25 mg b.i.d.; doxycycline; fluticasone; Lasix, dose been stopped; glimepiride 4 mg daily; olmesartan 40 mg daily; potassium; pravastatin and vitamin D. SOCIAL HISTORY: He is a nonsmoker, nondrinker. FAMILY HISTORY: Noncontributory. REVIEW OF SYSTEMS: Significant for dyspnea with minimal exertion. He already has supplemental oxygen at home. He lives with his . He has been fairly independent. He has had pedal edema. Shoes are poorly fitting. All other systems reviewed and turned to be negative. No COVID exposure. PHYSICAL EXAMINATION: GENERAL: When I saw him, this is a pleasant elderly gentleman who was very alert. He was comfortable. VITAL SIGNS: Initial vital signs showed a blood pressure 158/81; pulse was 78 and regular; oxygen saturation, he required 6 liters; and temperature was 97.9 degrees Fahrenheit. HEENT: Head is without trauma. Pupils are reactive. Sclerae nonicteric. Oropharynx clear. NECK: Supple. No bruits. LUNGS: Diminished breath sounds at bases with minimal crackles. CARDIOVASCULAR: Showed distant heart tones. No obvious gallops. Peripheral pulses are palpable and full. ABDOMEN: Obese, protuberant. No organomegaly. Bowel sounds were hypoactive. EXTREMITIES: Showed 3+ edema extending up to his thighs. NEUROLOGIC: Function focally intact. SKIN: Warm and dry. NEUROLOGIC: Speech fluent. PERTINENT LABORATORY STUDIES: His hemoglobin is 12.6 g/dL with a white count of 10,100. Creatinine is 1.6 mg/dL, which is baseline for him. Troponin slightly elevated at 0.18. BNP was 13,676. Chest x-ray as noted. ASSESSMENT: 1. An 81-year-old gentleman with acute on chronic congestive heart failure, systolic. 2. Volume overload due to adjustment of medication. 3. Permanent pacemaker. 4. History of aortic valve replacement. 5. Hypertension. 6. Type 2 diabetes. 7. Obesity. 8. Chronic renal failure. 9. Slight elevation of troponins, most likely due to stress demand ischemia. PLAN: 1. Admit to the hospital. 2. Diuresis. 3. Serial enzymes. 4. Formal Cardiology consultation. 5. Restart diuretics. SASHA DR: TANI/carl TID: [id number] CC: KULWINDER POST
[2021-05-21 20:39] VITALS: BP 161/70
--- NOTE | 2021-05-21 20:52 | NUR ---
Admitted to ICU Rm 3 at 1820 via cart from ED in stable condition; A&Ox4, VSS; O2 at 6L via nasal canula to keep SaO2 >94%; teletypesetter monitor shows atrial paced rhythm at 65 bpm without ectopy; room orientation given, plan of care discussed, verbalized understanding; home med list obtained from pt's , info relayed to and meds ordered as directed; resting at present with no voiced needs or concerns at this time.
[2021-05-21] MEDS: SACUBITRIL/VALSARTAN 49/51MG TABLET. PO SCH (20:59)
[2021-05-21] MEDS: APIXABAN 2.5 MG TABLET PO SCH (20:59)
[2021-05-21 22:00] VITALS: BP 140/74
[2021-05-21 22:51] VITALS: BP 128/50
[2021-05-22] VITALS (13 sets, daily range): BP systolic 125–153; BP diastolic 51–89
--- NOTE | 2021-05-22 05:55 | NUR ---
Utilized BiPap machine from approx 2130 to 0500 as per home settings during sleep; returned to nasal canula at 6L per request at 0500, SaO2 97-98%, respirations non-labored when at rest; becomes quickly SOA with minimal exertion
[2021-05-22] MEDS ORDERED: CARVEDILOL 12.5 MG TABLET PO SCH (08:00)
--- NOTE | 2021-05-22 08:13 | PDOC2 ---
CHIKIS BURCH CORE CLEANER 05/22/21 0813: CARDIAC CONSULT DATE OF CONSULT DOS: DATE: 05/22/21 TIME: 08:02 REASON FOR CONSULT Reason for Consult CHF, elevated troponin REFERRING PHYSICIAN Referring Physician Dr. Verdin SOURCE Source: Chart review, Patient HPI History of Present Illness This is an 81 yo male who presented secondary to shortness of breath, respiratory distress. Patient reports experiencing some mild dyspnea recently. Had echo conducted last week and followup with primary humanities instructor, Dr. Valle. Patient reports echo showed LVEF 30%, which was previously 50%. Signal Operator decreased his Lasix from 40mg to 20mg daily and potassium from 20 meq to 10meq. Was also to start Entresto and discontinue losartan. Patient was scheduled for lab work and stress test yesterday. Over the weekend, became increasingly more short of breath. No chest pain, dizziness, diaphoresis, or nausea/vomiting. Yesterday, went for stress test but was significantly short of breath and was unable to complete. Patient was recommended to go to the ED for further evaluation and treatment. Was noted with CHF and was given IV diuretics, which improved his breathing. Reports feeling much better this morning. PAST MEDICAL HISTORY Past Medical History Severe aortic stenosis s/p TAVR in April 2019 Sick sinus syndrome s/p recent permanent pacemaker implantation Hypertension Paroxysmal atrial fibrillation Hyperlipidemia Diabetes mellitus type 2 COPD YI GERD CKD PAST SURGICAL HISTORY Past Surgical History: Total knee replacement (bilateral ), Pacemaker, Other (vasectomy ) FAMILY HISTORY Family History: Cancer, Heart Disease SOCIAL HISTORY Smoke: Quit ALCOHOL: none Drugs: None Lives: with Family CURRENT MEDICATIONS Current Medications Current Medications Aspirin (Aspirin Chewable) 162 mg 1X ONCE PO Last administered on 05/21/21at 13:56; Start 05/21/21 at 12:45; Stop 05/21/21 at 12:53; Status DC Nitroglycerin (Nitrostat) 0.4 mg PRN Q5MIN PRN SL CP RATING > 1/10; Start 05/21/21 at 12:45; Stop 05/22/21 at 12:44 Furosemide (Lasix) 40 mg 1X ONCE IVP Last administered on 05/21/21at 13:57; Start 05/21/21 at 12:45; Stop 05/21/21 at 12:53; Status DC Enoxaparin Sodium (Lovenox 150mg Syringe) 126 mg 1X ONCE SQ Last administered on 05/21/21at 15:33; Start 05/21/21 at 14:30; Stop 05/21/21 at 14:37; Status DC Acetaminophen (Tylenol) 650 mg PRN Q4HRS PRN PO FEVER > 100.3'F; Start 05/21/21 at 14:45; Stop 05/22/21 at 14:44 Nitroglycerin (Nitrostat) 0.4 mg PRN Q5MIN PRN SL CHEST PAIN; Start 05/21/21 at 14:45; Stop 05/22/21 at 14:44; Status UNV Amiodarone HCl (Cordarone) 200 mg DAILY PO ; Start 05/22/21 at 09:00 Apixaban (Eliquis) 2.5 mg BID PO Last administered on 05/21/21at 20:59; Start 05/21/21 at 21:00 Ascorbic Acid (Vitamin C) 1,000 mg DAILY PO ; Start 05/22/21 at 09:00 Carvedilol (Coreg) 25 mg BIDWMEALS PO ; Start 05/22/21 at 08:00 Glimepiride (Amaryl) 4 mg DAILY PO ; Start 05/22/21 at 09:00 Losartan Potassium (Cozaar) 100 mg DAILY PO ; Start 05/22/21 at 09:00 Simvastatin (Zocor) 20 mg DAILY PO ; Start 05/22/21 at 09:00 Vitamin D (Vitamin D3) 1,000 unit DAILY PO ; Start 05/22/21 at 09:00 Furosemide (Lasix) 80 mg BID92 IVP ; Start 05/22/21 at 09:00 Potassium Chloride (Klor-Con) 20 meq BID PO ; Start 05/22/21 at 09:00 Sacubitril/ Valsartan (Entresto 49 Mg-51 Mg) 1 tab BID PO Last administered on 05/21/21at 20:59; Start 05/21/21 at 21:00 Active Scripts Active Reported Pravastatin Sodium 10 Mg Tablet 1 Tab PO DAILY Klor-Con M20 (Potassium Chloride) 20 Meq Tab.er.prt 10 Meq PO DAILY Furosemide 40 Mg Tablet 0.5 Tab PO DAILY Eliquis (Apixaban) 2.5 Mg Tablet 2.5 Mg PO BID Amiodarone Hcl 200 Mg Tablet 1 Tab PO DAILY [vitamin d] 1,000 Intlu PO DAILY Vitamin C (Ascorbic Acid) 500 Mg Capsule 1,000 Mg PO DAILY Amaryl (Glimepiride) 4 Mg Tablet 1 Tab PO DAILY Coreg (Carvedilol) 25 Mg Tablet 25 Mg PO BIDWMEALS Benicar (Olmesartan Medoxomil) 40 Mg Tablet 40 Mg PO DAILY ALLERGIES Allergies: Coded Allergies: atorvastatin (Verified Allergy, Unknown, 06/29/20) metformin (Verified Adverse Reaction, Unknown, dizziness, diarrhea, nausea, 01/25/21) ROS Review of Systems 14 point ROS conducted with pertinent positives noted above in HPI PHYSICAL EXAM General: Alert, Oriented X3, Cooperative, No acute distress HEENT: Atraumatic Lungs: Other (diminished bases ) Heart: Regular rate Abdomen: Soft, Other (ebese ) Extremities: Other (trace bilateral LE edema ) Neuro: Normal speech, Sensation intact Psych/Mental Status: Mental status NL, Mood NL MUSCULOSKELETAL: Osteoarthritic changes both hands VITALS Vital Signs Vital Signs Date Time Temp Pulse Resp B/P (MAP) Pulse Ox O2 Delivery O2 Flow Rate FiO2 05/22/21 05:53 64 17 152/59 (90) 99 Nasal Cannula 6.0 05/22/21 04:00 97.9 LABS LABS Laboratory Tests Test 05/21/21 12:45 05/21/21 17:00 05/21/21 20:35 05/21/21 21:07 White Blood Count 10.1 x10^3/uL (4.0-11.0) Red Blood Count 4.49 x10^6/uL (4.30-5.70) Hemoglobin 12.6 g/dL (13.0-17.5) Hematocrit 39.2 % (39.0-53.0) Mean Corpuscular Volume 87 fL (79-100) Mean Corpuscular Hemoglobin 28 pg (25-35) Mean Corpuscular Hemoglobin Concent 32 g/dL (31-37) Red Cell Distribution Width 17.5 % (11.5-14.5) Platelet Count 186 x10^3/uL (140-400) Neutrophils (%) (Auto) 83 % (31-73) Lymphocytes (%) (Auto) 11 % (24-48) Monocytes (%) (Auto) 5 % (0-9) Eosinophils (%) (Auto) 0 % (0-3) Basophils (%) (Auto) 1 % (0-3) Neutrophils # (Auto) 8.4 x10^3uL (1.8-7.7) Lymphocytes # (Auto) 1.1 x10^3/uL (1.0-4.8) Monocytes # (Auto) 0.5 x10^3/uL (0.0-1.1) Eosinophils # (Auto) 0.0 x10^3/uL (0.0-0.7) Basophils # (Auto) 0.0 x10^3/uL (0.0-0.2) Sodium Level 144 mmol/L (136-145) Potassium Level 4.1 mmol/L (3.5-5.1) Chloride Level 107 mmol/L (98-107) Carbon Dioxide Level 29 mmol/L (21-32) Anion Gap 8 (6-14) Blood Urea Nitrogen 32 mg/dL (8-26) Creatinine 1.6 mg/dL (0.7-1.3) Estimated GFR (Cockcroft-Gault) 41.7 BUN/Creatinine Ratio 20 (6-20) Glucose Level 78 mg/dL (70-99) Calcium Level 8.6 mg/dL (8.5-10.1) Magnesium Level 2.2 mg/dL (1.8-2.4) Total Bilirubin 0.8 mg/dL (0.2-1.0) Aspartate Amino Transf (AST/SGOT) 16 U/L (15-37) Alanine Aminotransferase (ALT/SGPT) 22 U/L (16-63) Alkaline Phosphatase 104 U/L (46-116) Troponin I Quantitative 0.180 ng/mL (0-0.055) 0.151 ng/mL (0-0.055) 0.165 ng/mL (0-0.055) LA-Red-H-Type Natriuretic Peptide 10837 pg/mL (0-449) Total Protein 6.5 g/dL (6.4-8.2) Albumin 3.5 g/dL (3.4-5.0) Albumin/Globulin Ratio 1.2 (1.0-1.7) Coronavirus (COVID-19)(PCR) Negative (NEGATIVE) SARS-CoV-2 Antigen (Rapid) Negative (NEGATIVE) Glucose (Fingerstick) 195 mg/dL (70-99) ASSESSMENT/PLAN Assessment/Plan 1. Acute respiratory failure secondary to a/c CHF; improved s/p IV diuresis 2. Acute on chronic systolic CHF; Lasix decreased from 40mg to 20mg last week. Reports echo last week with LVEF 30%. Was previously 50%. Patient was to start Entresto, but had not filled. MPI scheduled 05/21/21, but patient was unable to complete due to SOA. 3. Mild troponin elevation; peak 0.18. Most probably type II, demand ischemia in setting of above. CP free 4. Aortic stenosis s/p TAVR 2019. clinically stable. Follows with [facility], Mary Metz APRN and Dr. Valle 5. PAFIB; presently SR. on amiodarone and Eliquis 6. Hypertension; slightly elevated 7. Hyperlipidemia; statin 8. Diabetes, II 9. CKD Recommendations Repeat labs If Cr stable, will give additional Lasix 40mg IV x1 now then resume 40mg daily and start Entresto as previously ordered Discontinue losartan 2000cc FR, 2 Gm Na diet Continue Amiodarone for rhythm maintenance Eliquis for stroke prophylaxis. Statin therapy Will need to rescheduled outpatient ischemic evaluation with [facility] cardiology. TATO LUX MD 05/22/21 1728: CHIKIS BURCH APRN May 22, 2021 08:13 TATO LUX MD May 22, 2021 17:28
[2021-05-22] MEDS ORDERED: LOSARTAN 50 MG TABLET. PO SCH (09:00)
[2021-05-22] MEDS ORDERED: AMIODARONE HCL 200 MG TABLET. PO SCH (09:00)
[2021-05-22] MEDS ORDERED: FUROSEMIDE 40 MG/4 ML VIAL IVP SCH (09:00)
[2021-05-22] MEDS ORDERED: SIMVASTATIN 20 MG TABLET PO SCH (09:00)
[2021-05-22] MEDS ORDERED: POTASSIUM CHLORIDE 20 MEQ TABLET.ER. PO SCH (09:00)
[2021-05-22] MEDS ORDERED: CHOLECALCIFEROL (VITAMIN D3) 1,000 UNIT TABLET PO SCH (09:00)
[2021-05-22] MEDS ORDERED: GLIMEPIRIDE 2 MG TABLET PO SCH (09:00)
[2021-05-22] MEDS ORDERED: ASCORBIC ACID 1,000 MG TABLET PO SCH (09:00)
[2021-05-22] MEDS: APIXABAN 2.5 MG TABLET PO SCH (09:05)
[2021-05-22 09:54] LABS: CALCIUM 8.2 mg/dL (8.5-10.1); CREATININE 1.4 mg/dL (0.7-1.3); GFR 48.6; POTASSIUM 3.3 mmol/L (3.5-5.1)
--- NOTE | 2021-05-22 09:55 | NUR ---
spoke with Miriam from Cardiology, she stated that we would await pt chemistry results to determine if we will administer lasix, entresto and potassium. order to stop losartan was obtained and records from [facility] requested.
[2021-05-22] MEDS ORDERED: FUROSEMIDE 40 MG/4 ML VIAL IVP ONE (11:20)
[2021-05-22] MEDS ORDERED: POTASSIUM CHLORIDE 20 MEQ TABLET.ER. PO ONE ×2 (11:20→15:00)
[2021-05-22] MEDS: SACUBITRIL/VALSARTAN 49/51MG TABLET. PO SCH (11:49)
[2021-05-22] MEDS ORDERED: FURO40TA4 PO (13:12)
[2021-05-22] MEDS ORDERED: POTA-121 PO (13:12)
[2021-05-22] MEDS ORDERED: SACU1TAB7 PO (13:42)
--- NOTE | 2021-05-22 13:57 | DS ---
HOSPITAL COURSE: The patient is an 81-year-old male patient who apparently presented to the Emergency Room with worsening shortness of breath. He apparently has had severe aortic stenosis, status post transcatheter aortic valve replacement in 04/2019. He also has sick sinus syndrome, status post recent permanent pacemaker implantation, who is known to have congestive heart failure. He apparently was started on Entresto and his state pilot made some changes to the introduction of his Lasix from 40 to 20 mg and his potassium to 10 mEq, and he basically has gained about 10 pounds over the last 36 hours. He apparently spoke with his state pilot at [facility], who recommended that the patient present for admission and potential need for stress test at a [facility] facility, but en route to the ED, he became short of breath, was in fact recently started on 3 liters of oxygen by nasal cannula at nighttime only, but has not been using that oxygen. He is also known to have obstructive sleep apnea on CPAP. He was evaluated in the Emergency Room and was treated with IV Lasix and he did actually very well. PHYSICAL EXAMINATION: GENERAL: When I examined him this afternoon, he looked well and was clearly in no apparent respiratory distress. He was pale, but no jaundice, cyanosis or thyromegaly. No jugular venous distention. Mild bilateral limb edema. VITAL SIGNS: His heart rate was 60, blood pressure 130/63, temperature 97.9, respiratory rate was 17 and oxygen saturation was 99% on 6 liters of oxygen. HEAD, EYES, EARS, NOSE, AND THROAT: Normocephalic, atraumatic. NECK: Supple. HEART: Showed normal first and second heart sounds, no gallop or murmur. CHEST: Shows central trachea, equal bilateral chest expansion, air entry, vesicular breath sounds. A few bibasilar crepitation. I could not appreciate any rhonchi. ABDOMEN: Distended, soft, nontender. NEUROLOGIC: He was grossly intact. His white cell count was 10,000, hemoglobin 13, hematocrit 39, MCV 87 and platelet count of 186,000. LABORATORY DATA: His chemistry this morning showed a serum sodium 144, potassium 3.3, chloride 107, bicarbonate 30, anion gap of 7, BUN 25, creatinine 1.5. Estimated GFR was 48 mL per minute, calcium was 8.2, magnesium 2, three sets of cardiac enzymes are slightly elevated, felt to be secondary to demand ischemia. DISCHARGE MEDICATIONS: He was discharged home to continue on furosemide 40 mg once a day and potassium chloride 20 mEq once a day. Should continue also on amiodarone 200 mg once a day, apixaban 2.5 mg twice a day, ascorbic acid 500 mg once a day, carvedilol 25 mg twice a day, gabapentin one tablet daily, pravastatin 10 mg at bedtime, vitamin D 1000 International Unit once a day. FINAL DISCHARGE DIAGNOSES: 1. Acute hypoxic respiratory failure secondary to congestive heart failure. 2. Acute on chronic, probably systolic congestive heart failure. 3. Mild troponin elevation, peaking at 0.18 while the probable type 2 diabetes mellitus. 4. Aortic stenosis, status post transcatheter aortic valve replacement, clinically stable. 5. Paroxysmal atrial fibrillation, currently in paroxysmal atrial fibrillation, hypertension, hyperlipidemia, type 2 diabetes and chronic kidney disease. ANTONI DR: Bryce TID: [id number]
--- NOTE | 2021-05-22 14:23 | NUR ---
Discharge instructions reviewed with pt. all questions answered. discharge instructions, education materials and all belongings sent with pt. piv and tele were dc'd ptd.
[2021-05-23] MEDS ORDERED: POTASSIUM CHLORIDE 20 MEQ TABLET.ER. PO SCH (08:00)
[2021-05-23] MEDS ORDERED: FUROSEMIDE 40 MG TABLET PO SCH (09:00)
== END 2021-05-22 14:22 | disposition home or self-care (01) ==
LOC: ER 12:35 → INTOOBSV 14:32 → ICU 14:32
PROVIDERS: ADMIT Hospitalist; ATTEND Hospitalist
DX: I13.0 Hypertensive heart and chronic kidney disease with heart failure and stage 1 through stage 4 chronic kidney disease, or unspecified chronic kidney disease (principal); I50.23 Acute on chronic systolic (congestive) heart failure; E11.22 Type 2 diabetes mellitus with diabetic chronic kidney disease; N18.9 Chronic kidney disease, unspecified; J96.01 Acute respiratory failure with hypoxia; I48.0 Paroxysmal atrial fibrillation; Z20.822 Contact with and (suspected) exposure to COVID-19; J44.9 Chronic obstructive pulmonary disease, unspecified; I49.5 Sick sinus syndrome; I35.0 Nonrheumatic aortic (valve) stenosis; E66.9 Obesity, unspecified; E78.5 Hyperlipidemia, unspecified; G47.33 Obstructive sleep apnea (adult) (pediatric); I21.4 Non-ST elevation (NSTEMI) myocardial infarction; Z95.0 Presence of cardiac pacemaker; Z95.2 Presence of prosthetic heart valve; Z96.653 Presence of artificial knee joint, bilateral
CPT/HCPCS: 36415; 71045; 80048; 80053; 82947; 83735; 83880; 84484; 85025; 87426; 93005; 94660; 96372; 96374; 96376; 99291; G0378; J1650; J1940; U0003; G0379; 99285-25